=== PATIENT | female | born 1960 ===

== ENCOUNTER 2018-09-15 06:03 | Inpatient (IN) | payer BC ==
[~2018-09-15 06:03] MED LIST: Acetaminophen 325 MG Tab PO SCH; Lactated Ringers 1,000 ML IV SCH; Lidocaine 1%/Sod Bicarbonate in NS 8.4% 1 ML Syringe IDERM PRN; Pregabalin 25 MG Cap PO SCH; Sodium Chloride 0.9% 10 ML Syringe FLUSH PRN; oxyCODONE ER 10 MG TAB.ER PO SCH
[2018-09-15] MEDS ORDERED: Vancomycin 1 GM SDV ONE (06:15)
[2018-09-15] MEDS ORDERED: ceFAZolin 1 GM Vial ONE ×2 (06:15→06:59)
[2018-09-15] MEDS ORDERED: Iodine/Sodium Iodide 2% Tincture 30 ML Bottle ONE (06:16)
[2018-09-15] MEDS ORDERED: Bupivacaine 0.25% 30 ML SDV ONE (06:16)
[2018-09-15] MEDS ORDERED: Morphine 8 MG, EPINEPHrine 0.3 MG, Cefuroxime 750 MG, Ketorolac 30 MG, Sodium Chloride ... ONE ×10 (06:37→07:30)
[2018-09-15] MEDS ORDERED: Bisacodyl 5 MG Tab PO PRN (06:37)
[2018-09-15] MEDS ORDERED: Magnesium Hydroxide 400 MG/5 ML Susp 30 ML Cup PO PRN (06:37)
[2018-09-15] MEDS ORDERED: Cyclobenzaprine 10 MG Tab PO PRN (06:37)
[2018-09-15] MEDS ORDERED: Sennosides 8.6 MG Tab PO PRN (06:37)
[2018-09-15] MEDS ORDERED: Morphine 2 MG/ML Syringe IVPUSH PRN (06:37)
[2018-09-15] MEDS ORDERED: Naloxone 0.4 MG/ML SDV IVPUSH PRN (06:37)
[2018-09-15] MEDS ORDERED: Propofol 200 MG/20 ML SDV ONE (06:56)
[2018-09-15] MEDS ORDERED: Lidocaine 1% 4 ML ONE (06:57)
[2018-09-15] MEDS ORDERED: Ketamine 500 mg/10 ML MDV ONE (06:57)
[2018-09-15] MEDS ORDERED: Ondansetron 4 MG/2 ML SDV ONE (06:57)
[2018-09-15] MEDS ORDERED: Midazolam 1 MG/ML 2 ML SDV ONE ×2 (06:57→07:07)
[2018-09-15] MEDS ORDERED: ePHEDrine/Normal Saline 25 MG/5 ML Syringe ONE (06:58)
[2018-09-15] MEDS ORDERED: Scopolamine 1.5 MG Transdermal Patch TOP SCH (07:00)
[2018-09-15] MEDS ORDERED: Dexamethasone 4 MG/ML 5 ML MDV ONE (07:36)
[2018-09-15] MEDS ORDERED: Lidocaine 1% 2 ML ONE (07:57)
[2018-09-15] MEDS ORDERED: Ketorolac 30 MG/ML SDV ONE (08:29)
[2018-09-15] MEDS ORDERED: Lactated Ringers 1,000 ML ONE ×2 (08:30→08:44)
[2018-09-15] MEDS ORDERED: Phenylephrine/Normal Saline 100 MCG/ML 10 ML Syringe ONE (08:36)
[2018-09-15] MEDS ORDERED: fentaNYL 100 MCG/2 ML SDV IVPUSH PRN (08:40)
[2018-09-15] MEDS ORDERED: ePHEDrine 50 MG/ML SDV IVPUSH PRN (08:40)
[2018-09-15] MEDS ORDERED: diphenhydrAMINE 50 MG/ML SDV IVPUSH PRN (08:40)
[2018-09-15] MEDS ORDERED: Ondansetron 4 MG/2 ML SDV IVPUSH PRN (08:40)
--- NOTE | 2018-09-15 08:40 | PCM.PREANE ---
Preanesthetic Assessment - Anesthesia/Transfusion/Family Hx Anesthesia History: Prior Anesthesia Reaction Type of Anesthesia Reaction: Excessive Nausea/Vomiting Family History of Anesthesia Reaction: No Transfusion History: Prior Transfusion Without Reaction Intubation History: Unknown - Review of Systems General: No Symptoms Pulmonary: No Symptoms Cardiovascular: No Symptoms Gastrointestinal: No Symptoms Neurological: Headache (Migraines), Other (Lumbar Disk Surgery, Cervical Spine Disease, no radiculopathy noted. ) Other: Reports: Thyroid Problems, Depression, Anxiety (Severe) - Physical Assessment NPO Status Date: 09/14/18 NPO Status Time: 20:00 O2 Sat by Pulse Oximetry: 95 Respiratory Rate: 16 Vital Signs: Last Vital Signs Temp 36.4 C 09/15/18 06:15 Pulse 83 09/15/18 06:15 Resp 16 09/15/18 06:15 BP 118/76 09/15/18 06:15 Pulse Ox 95 09/15/18 06:15 Height: 1.57 m Weight: 60.781 kg ASA Class: 2 Mental Status: Alert & Oriented x3 Airway Class: Mallampati = 1 Dentition: Reports: Normal Dentition Thyro-Mental Finger Breadths: 3 Mouth Opening Finger Breadths: 3 ROM/Head Extension: Full Lungs: Clear to Auscultation, Normal Respiratory Effort Cardiovascular: Regular Rate, Regular Rhythm - Lab Values: Laboratory Last Values MRSA (PCR) Negative 09/04/18 08:33 - Allergies Allergies/Adverse Reactions: Allergies Allergy/AdvReac Type Severity Reaction Status Date / Time amoxicillin [From Augmentin] AdvReac Diarrhea Verified 09/12/18 14:11 clavulanic acid AdvReac Diarrhea Verified 09/12/18 14:11 [From Augmentin] - Anesthesia Plan Pre-Op Medication Ordered: Anxiolytic, Other (Scopolamine Patch) - Acknowledgements Anesthesia Type Planned: Spinal, Regional Block, MAC Pt an Appropriate Candidate for the Planned Anesthesia: Yes Alternatives and Risks of Anesthesia Discussed w Pt/Guardian: Yes Pt/Guardian Understands and Agrees with Anesthesia Plan: Yes Additional Comments: Adductor Canal Block In PACU. 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 OB/BYN History: menopausal, hot flashes Musculoskeletal History: Reports: Other (See Below) Other Musculoskeletal History: tendinitis, left knee pain Neurological History: Reports: Other (See Below) Other Neuro History: cervical disc disorder with radiculopathy, lumbar discectomy, spinectomy Psychiatric History: Reports: Anxiety, Depression Endocrine/Metabolic History: Reports: Hypothyroidism, Vitamin D Deficiency Hematologic History: Reports: Blood Transfusion(s) Immunologic History: Reports: None Oncologic (Cancer) History: Reports: None Dermatologic History: Reports: None - Past Surgical History Head Surgeries/Procedures: Reports: None HEENT Surgical History: Reports: Tonsillectomy Cardiovascular Surgical History: Reports: None Respiratory Surgical History: Reports: None GI Surgical History: Reports: Other (See Below) Other GI Surgeries/Procedures: splenectomy Female Surgical History: Reports: Section, D&C, Hysterectomy, Oophorectomy Male Surgical History: Reports: None Endocrine Surgical History: Reports: None Neurological Surgical History: Reports: Lumbar Spine Musculoskeletal Surgical History: Reports: Arthroscopic Knee Oncologic Surgical History: Reports: None Dermatological Surgical History: Reports: Other (See Below) - SUBSTANCE USE Smoking Status *Q: Never Smoker Second Hand Smoke Exposure: No Recreational Drug Use History: No - HOME MEDS Home Medications: Home Meds Ascorbic Acid [Vitamin C] 500 mg PO DAILY 03/26/18 [History] Cholecalciferol (Vitamin D3) [Vitamin D3] 2,000 unit PO DAILY 03/26/18 [History] ClonazePAM [KlonoPIN] 0.5 mg PO BEDTIME 03/26/18 [History] Estradiol 0.1 dose TOP TUTH 03/26/18 [History] Levothyroxine [Synthroid] 88 mcg PO DAILY 03/26/18 [History] Multivitamin [Poly-Vitamin] 1 tab PO DAILY 03/26/18 [History] fluvoxaMINE Maleate [Fluvoxamine Maleate ER] 100 mg PO BEDTIME 03/26/18 [History ] - CURRENT (IN HOUSE) MEDS Current Meds: Current Medications Acetaminophen (Tylenol) 975 mg PO ONETIME [facility] Stop: 09/15/18 13:00 Last Admin: 09/15/18 06:39 Dose: 975 mg Aspirin (Ecotrin) 325 mg PO BID [facility] Bisacodyl (Dulcolax) 5 mg PO DAILY PRN PRN Reason: Constipation Cyclobenzaprine HCl (Flexeril) 10 mg PO TID PRN PRN Reason: Spasms Docusate Sodium (Colace) 100 mg PO BID [facility] Famotidine (Pepcid) 20 mg PO Q12H [facility] Lactated Ringer's (Ringers, Lactated) 1,000 mls @ 125 mls/hr IV ASDIRECTED [facility] Stop: 09/15/18 23:00 Last Admin: 09/15/18 06:25 Dose: 125 mls/hr Cefazolin Sodium/Dextrose 2 gm (/ Premix) 50 mls @ 100 mls/hr IV Q8H [facility] Stop: 09/15/18 23:14 Ketorolac Tromethamine (Toradol) 15 mg IVPUSH Q6H PRN PRN Reason: Pain Lidocaine/Sodium Bicarbonate (Buffered Lidocaine 1% In Ns 8.4%) 0.25 ml IDERM ONETIME PRN PRN Reason: Prior to IV Start Stop: 09/15/18 18:00 Last Admin: 09/15/18 06:25 Dose: 0.25 ml Magnesium Hydroxide (Milk Of Magnesia) 30 ml PO BID PRN PRN Reason: Constipation Morphine Sulfate (Morphine) 2 mg IVPUSH Q2H PRN PRN Reason: Breakthrough Pain Naloxone HCl (Narcan) 0.1 mg IVPUSH Q5M PRN PRN Reason: Oversedation Ondansetron HCl (Zofran) 4 mg IVPUSH Q6H PRN PRN Reason: Nausea/Vomiting Oxycodone HCl (Oxycontin) 10 mg PO ONETIME [facility] Stop: 09/15/18 13:00 Last Admin: 09/15/18 06:40 Dose: 10 mg Oxycodone/Acetaminophen (Percocet 325-5 Mg) 1 - 2 tab PO Q4H PRN PRN Reason: Pain Pregabalin (Lyrica) 50 mg PO ONETIME [facility] Stop: 09/15/18 13:00 Last Admin: 09/15/18 06:39 Dose: 50 mg Scopolamine (Transderm-Scop) 1.5 mg TOP ONETIME [facility] Stop: 09/15/18 13:00 Last Admin: 09/15/18 06:19 Dose: 1.5 mg Senna (Senna) 8.6 mg PO BID PRN PRN Reason: Constipation Sodium Chloride (Saline Flush) 10 ml FLUSH ASDIRECTED PRN PRN Reason: Keep Vein Open Stop: 09/15/18 23:00 Discontinued Medications Bupivacaine HCl (Marcaine 0.25%) Confirm Administered Dose 30 ml .ROUTE .STK- MED ONE Stop: 09/15/18 06:17 Cefazolin Sodium (Ancef) Confirm Administered Dose 2 gm .ROUTE .STK-MED ONE Stop: 09/15/18 06:16 Cefazolin Sodium (Ancef) Confirm Administered Dose 2 gm .ROUTE .STK-MED ONE Stop: 09/15/18 07:00 Morphine Sulfate 8 mg/Epinephrine HCl 0.3 mg/Cefuroxime Sodium 750 mg/Ketorolac Tromethamine 30 mg/Sodium Chloride 27.9 ml 0 mg .XX ONETIME ONE Stop: 09/15/18 07:31 Dexamethasone (Dexamethasone) Confirm Administered Dose 20 mg .ROUTE .STK-MED ONE Stop: 09/15/18 07:37 Ephedrine Sulfate (Ephedrine In Ns) Confirm Administered Dose 25 mg .ROUTE .ST- MED ONE Stop: 09/15/18 06:59 Lidocaine HCl (Xylocaine-Mpf 1%) Confirm Administered Dose 4 mls @ as directed .ROUTE .STK-MED ONE Stop: 09/15/18 06:58 Lidocaine HCl (Xylocaine-Mpf 1%) Confirm Administered Dose 2 mls @ as directed .ROUTE .STK-MED ONE Stop: 09/15/18 07:58 Lactated Ringer's (Ringers, Lactated) Confirm Administered Dose 1,000 mls @ as directed .ROUTE .STK-MED ONE Stop: 09/15/18 08:31 Iodine (Iodine 2% Mild Tincture) Confirm Administered Dose 30 ml .ROUTE .STK- MED ONE Stop: 09/15/18 06:17 Ketamine HCl (Ketalar) Confirm Administered Dose 500 mg .ROUTE .STK-MED ONE Stop: 09/15/18 06:58 Ketorolac Tromethamine (Toradol) Confirm Administered Dose 30 mg .ROUTE .STK- MED ONE Stop: 09/15/18 08:30 Midazolam HCl (Versed 1 Mg/Ml) Confirm Administered Dose 2 mg .ROUTE .STK-MED ONE Stop: 09/15/18 06:58 Midazolam HCl (Versed 1 Mg/Ml) Confirm Administered Dose 2 mg .ROUTE .STK-MED ONE Stop: 09/15/18 07:08 Ondansetron HCl (Zofran) Confirm Administered Dose 4 mg .ROUTE .STK-MED ONE Stop: 09/15/18 06:58 Propofol (Diprivan 20 Ml) Confirm Administered Dose 600 mg .ROUTE .STK-MED ONE Stop: 09/15/18 06:57 Tranexamic Acid (Cyklokapron) Confirm Administered Dose 1,000 mg .ROUTE .STK- MED ONE Stop: 09/15/18 06:16 Vancomycin HCl (Vancomycin) Confirm Administered Dose 1 gm .ROUTE .STK-MED ONE Stop: 09/15/18 06:16
--- NOTE | 2018-09-15 09:01 | PCM.POSTAN ---
POST ANESTHESIA ASSESSMENT - MENTAL STATUS Mental Status: Alert, Oriented - VITAL SIGNS Pulse Rate: 103 SaO2: 95 Resp Rate: 15 Blood Pressure: 100/50 Temperature: 36.3 C - RESPIRATORY Respiratory Status: Respiratory Rate WNL, Airway Patent, O2 Saturation Stable, Supplemental Oxygen - CARDIOVASCULAR CV Status: Pulse Rate WNL, Blood Pressure Stable - GASTROINTESTINAL GI Status: No Symptoms - PAIN Pain Score: 0 - POST OP HYDRATION Hydration Status: Adequate & Stable
[2018-09-15] MEDS ORDERED: EPINEPHrine 1 MG/ML SDV ONE (09:13)
[2018-09-15] MEDS ORDERED: Ropivacaine 0.5% 5 MG/ML 30 ML SDV ONE (09:14)
--- NOTE | 2018-09-15 09:35 | PCM.SN ---
- Free Text/Narrative Note: Right selective femoral nerve block at the adductor canal for post-procedure pain control Time Out: 917 Start: 920 End: 926 Chart reviewed. Consent signed. Questions answered. Appropriate monitors applied. Time out performed. Right mid-shaft femur evaluated with ultrasound. Scanning medially femur, I was able to identify the femoral artery in the adductor canal. The saphenous nerve was lateral to the artery. The skin was prepped lateral to the ultrasound probe with chlorahexadine. The 21ga 4 insulated block needle was inserted under direct ultrasound guidance into the adductor canal. 20mL of 0.5% ropivacaine with 1:200,000 epinephrine was injected cirmcumferentially about the nerve with intermittent negative aspiration every 5mL. Patient tolerated the procedure well. See pictures on progress note and vital signs on nurses notes. Block completed postoperatively. Jackeline Braun DRY HOUSE TENDER
--- NOTE | 2018-09-15 10:24 | CR ---
Right knee: Two views of the right knee were obtained. Comparison: Previous right knee MRI dated 07/11/18. Knee prosthesis is seen. Components are aligned. Underlying bony structures are intact. Soft tissue air is noted from surgical procedure. Impression: 1. Satisfactory postoperative radiographic appearance of recently placed right knee prosthesis. Diagnostic code #2
[2018-09-15] MEDS: Famotidine 20 MG Tab PO SCH ×2 (11:46→17:45)
[2018-09-15] MEDS ORDERED: Sodium Chloride 0.9% 1,000 ML ONE (13:58)
[2018-09-15] MEDS: Ondansetron 4 MG/2 ML SDV IVPUSH PRN ×3 (14:00→23:23)
[2018-09-15] MEDS ORDERED: Sodium Chloride 0.9% 1,000 ML IV SCH (14:00)
[2018-09-15] MEDS: ceFAZolin 2 GM in Premix Bag 1 BAG IV SCH ×4 (15:11→22:14)
[2018-09-15] MEDS: Acetaminophen/oxyCODONE 325-5 MG Tab PO PRN (17:42)
[2018-09-15] MEDS: Docusate Sodium 100 MG Cap PO SCH (20:28)
[2018-09-15] MEDS: FLUVOXAMINE MALEATE 100 MG PO SCH (20:28)
[2018-09-15] MEDS: ClonazePAM 0.5 MG Tab PO SCH (20:28)
--- NOTE | 2018-09-15 20:29 | PCM.CONS ---
H&P History of Present Illness - General Date of Service: 09/15/18 Admit Problem/Dx: Admission Diagnosis/Problem Admission Diagnosis/Problem Osteoarthritis of knee - History of Present Illness Initial Comments - Free Text/Narative: Patient seen at the request of orthopedic surgery for medical management post right TKA. Patient had approximately 750 mL blood loss during surgery. When she arrived at the floor she did have some hypotension that required a 500 mL normal saline bolus. Patient has done well since that time. She denies any shortness of breath, chest pain, orthopnea, or pain. Patient has a past medical history significant for depression/anxiety, asplenia, and hypothyroidism. Patient will receive a second dose of antibiotics. Right Knee Pain Score (Numeric/FACES): 0 - Related Data Allergies/Adverse Reactions: Allergies Allergy/AdvReac Type Severity Reaction Status Date / Time amoxicillin [From Augmentin] AdvReac Diarrhea Verified 09/15/18 10:33 clavulanic acid AdvReac Diarrhea Verified 09/15/18 10:33 [From Augmentin] Home Medications: Home Meds Cholecalciferol (Vitamin D3) [Vitamin D3] 5,000 unit PO DAILY 03/26/18 [History] ClonazePAM [KlonoPIN] 0.5 mg PO BEDTIME 03/26/18 [History] Levothyroxine [Synthroid] 88 mcg PO DAILY 03/26/18 [History] Multivitamin [Poly-Vitamin] 1 tab PO DAILY 03/26/18 [History] fluvoxaMINE Maleate [Fluvoxamine Maleate ER] 100 mg PO BEDTIME 03/26/18 [History ] Acetaminophen/oxyCODONE [Percocet 325-5 MG] 1 - 2 tab PO Q4H PRN #60 tablet [Rx] Aspirin [Ecotrin] 325 mg PO BID #84 tab.ec 09/15/18 [Rx] Bisacodyl [Dulcolax] 5 mg PO DAILY PRN tablet 09/15/18 [Rx] Cyclobenzaprine [Flexeril] 10 mg PO BID PRN #30 tablet 09/15/18 [Rx] Docusate Sodium [Colace] 100 mg PO BID cap 09/15/18 [Rx] Famotidine [Pepcid] 20 mg PO Q12H tablet 09/15/18 [Rx] Magnesium Hydroxide [Milk of Magnesia] 30 ml PO BID PRN cup 09/15/18 [Rx] Sennosides [Senna] 8.6 mg PO BID PRN tablet 09/15/18 [Rx] Past Medical History HEENT History: Reports: Impaired Vision Other HEENT History: patient wears glasses. 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 OB/BYN History: menopausal, hot flashes Musculoskeletal History: Reports: Other (See Below) Other Musculoskeletal History: tendinitis, left knee pain Neurological History: Reports: Other (See Below) Other Neuro History: cervical disc disorder with radiculopathy, lumbar discectomy, spinectomy Psychiatric History: Reports: Anxiety, Depression Other Psychiatric History: Panic attacks Endocrine/Metabolic History: Reports: Hypothyroidism, Vitamin D Deficiency Hematologic History: Reports: Blood Transfusion(s) Immunologic History: Reports: None 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 Oncologic (Cancer) History: Reports: None Dermatologic History: Reports: None - Past Surgical History Head Surgeries/Procedures: Reports: None HEENT Surgical History: Reports: Tonsillectomy Cardiovascular Surgical History: Reports: None Respiratory Surgical History: Reports: None GI Surgical History: Reports: Other (See Below) Other GI Surgeries/Procedures: splenectomy Female Surgical History: Reports: Section, D&C, Hysterectomy, Oophorectomy Endocrine Surgical History: Reports: None Neurological Surgical History: Reports: Lumbar Spine Musculoskeletal Surgical History: Reports: Arthroscopic Knee Other Musculoskeletal Surgeries/Procedures:: Lumbar Spine Discetomy Oncologic Surgical History: Reports: None Other Oncologic Surgeries/Procedures: MOHS sx left cheek Dermatological Surgical History: Reports: Other (See Below) Social & Family History - Tobacco Use Smoking Status *Q: Never Smoker Second Hand Smoke Exposure: No - Caffeine Use Caffeine Use: Reports: Soda - Recreational Drug Use Recreational Drug Use: No H&P Review of Systems - Review of Systems: Review Of Systems: ROS reveals no pertinent complaints other than HPI. Exam - Exam Exam: See Below - Vital Signs Vital Signs: Last Vital Signs Temp 97.5 F 09/15/18 09:45 Pulse 55 L 09/15/18 17:01 Resp 16 09/15/18 10:00 BP 98/61 09/15/18 17:01 Pulse Ox 99 09/15/18 17:01 Weight: 135 lb - Exam Quality Assessment: No: Supplemental Oxygen General: Alert, Oriented HEENT: Conjunctiva Clear, Mucosa Moist & [place], Posterior Pharynx Clear Neck: Supple, Trachea Midline Lungs: Clear to Auscultation, Normal Respiratory Effort Cardiovascular: Regular Rate, Regular Rhythm GI/Abdominal Exam: Normal Bowel Sounds, Soft, Non-Tender, No Distention Back Exam: Normal Inspection, Full Range of Motion Extremities: Normal Inspection Skin: Warm, Dry, Intact Neuro Extensive - Mental Status: Alert, Oriented x3, Normal Mood/Affect, Normal Cognition Neuro Extensive - Motor, Sensory, Reflexes: CN II-XII Intact, Normal Gait - Patient Data Lab Results Last 24 hrs: Laboratory Results - last 24 hr 09/15/18 Range/Units 09:54 Hgb 12.4 (11.2-15.7) gm/L Hct 37.8 (34.1-44.9) % Result Diagrams: 09/15/18 09:54 Consult PN Assessment/Plan Procedures: Procedures ASSAY GLUCOSE BLOOD QUANT (05/13/15) ASSAY OF PREALBUMIN (09/04/18) ASSAY THYROID STIM HORMONE (09/04/18) COMP SCREEN MAMMOGRAM ADD-ON (05/10/16) COMPLETE CBC AUTOMATED (09/04/18) COMPLETE CBC W/AUTO DIFF WBC (06/10/17) COMPREHEN METABOLIC PANEL (09/04/18) DXA BONE DENSITY AXIAL (10/02/17) GLYCOSYLATED HEMOGLOBIN TEST (09/03/17) INFLUENZA ASSAY W/OPTIC (08/04/14) KNEE ARTHROSCOPY/SURGERY (03/27/18) LIPID PANEL (09/04/18) MANUAL THERAPY 1/> REGIONS (02/28/17) MASSAGE THERAPY (02/28/17) METABOLIC PANEL TOTAL CA (03/17/14) MICROBE SUSCEPTIBLE [place] (12/07/14) MR-STAPH DNA AMP PROBE (03/27/18) MRI JNT OF LWR EXTRE W/O DYE (07/11/18) MRI LUMBAR SPINE W/O DYE (04/03/17) OCCULT BLOOD FECES (05/15/15) PROTHROMBIN TIME (09/04/18) PT EVAL LOW COMPLEX 20 MIN (02/28/17) PT EVALUATION (10/15/13) ROUTINE VENIPUNCTURE (09/04/18) SCR MAMMO BI INCL CAD (10/02/17) THERAPEUTIC EXERCISES (02/28/17) THROMBOPLASTIN TIME PARTIAL (09/04/18) ULTRASOUND THERAPY (10/15/13) URINALYSIS AUTO W/O SCOPE (09/03/17) URINALYSIS AUTO W/SCOPE (06/10/17) URINE BACTERIA CULTURE (12/07/14) URINE CULTURE/COLONY COUNT (12/07/14) VITAMIN D 25 HYDROXY (09/04/18) X-RAY EXAM CHEST 2 VIEWS (09/03/18) X-RAY EXAM KNEE 4 OR MORE (03/08/14) X-RAY EXAM L-S SPINE 2/3 VWS (03/29/17) X-RAY EXAM OF WRIST (03/08/14) Problem List Initiated/Reviewed/Updated: Yes My Orders Last 24 Hours: My Active Orders 09/15/18 14:00 Sodium Chloride 0.9% [Normal Saline] 1,000 ml IV ASDIRECTED Plan: S/P R TKA * Approximately 750 mL blood loss * One episode of hypotension corrected with 500 mL of normal saline. * Follow hemoglobin in the morning. * Pain management and VTE prophylaxis per surgery Asplenia * Patient will receive second dose of antibiotics. * Monitor WBC and temperature overnight. Chronic medical problems to include hypothyroidism, menopausal, anxiety, depression, vitamin D. Plan discharge in the morning per orthopedic surgery. Thank you for allowing us to dissipate in the care of this patient. Requesting Provider: Dr. Alston Date Consult Requested: 09/15/18 Reason for Consult: Medical management Patient History Reviewed: Yes Admission H&P Reviewed: Yes Notified Requestor: Yes
[2018-09-15] MEDS: Ketorolac 15 MG/ML SDV IVPUSH PRN (22:14)
[2018-09-16] MEDS: Ondansetron 4 MG/2 ML SDV IVPUSH PRN (05:45)
[2018-09-16] MEDS ORDERED: Sodium Chloride 0.9% 500 ML IV ONE (06:00)
[2018-09-16] MEDS ORDERED: LORazepam 0.5 MG Tab PO PRN (06:32)
--- NOTE | 2018-09-16 06:32 | PCM.PN ---
<Mitch Antunez - Last Filed: 09/16/18 19:34> - Patient Data Vitals - Most Recent: Last Vital Signs Temp 99.9 F 09/16/18 15:52 Pulse 77 09/16/18 15:52 Resp 14 09/16/18 15:52 BP 93/45 L 09/16/18 15:52 Pulse Ox 91 L 09/16/18 15:52 I&O - Last 24 Hours: Intake & Output 09/16/18 09/16/18 09/16/18 06:59 14:59 22:59 Intake Total 800 0 1540 Output Total 3100 1200 Balance -2300 0 340 Lab Results Last 24 Hours: Laboratory Results - last 24 hr 09/16/18 09/16/18 09/16/18 Range/Units 06:05 06:05 12:28 WBC 22.59 H (3.98-10.04) K/mm3 RBC 3.69 L (3.98-5.22) M/mm3 Hgb 10.9 L (11.2-15.7) gm/L Hct 33.0 L (34.1-44.9) % MCV 89.4 (79.4-94.8) fl MCH 29.5 (25.6-32.2) pg MCHC 33.0 (32.2-35.5) g/dl RDW Std Deviation 44.4 (36.4-46.3) fL Plt Count 306 (182-369) K/mm3 MPV 10.3 (9.4-12.3) fl Sodium 139 (136-145) mEq/L Potassium 4.3 (3.5-5.1) mEq/L Chloride 105 (98-107) mEq/L Carbon Dioxide 28 (21-32) mEq/L Anion Gap 10.3 (5-15) BUN 10 (7-18) mg/dL Creatinine 0.8 (0.55-1.02) mg/dL Est Cr Clr Drug Dosing 62.10 mL/min Estimated GFR (MDRD) > 60 (>60) mL/min BUN/Creatinine Ratio 12.5 L (14-18) Glucose 120 H (74-106) mg/dL Calcium 9.4 (8.5-10.1) mg/dL Total Bilirubin 0.5 (0.2-1.0) mg/dL AST 21 (15-37) U/L ALT 37 (14-59) U/L Alkaline Phosphatase 49 (46-116) U/L Total Protein 6.0 L (6.4-8.2) g/dl Albumin 3.0 L (3.4-5.0) g/dl Globulin 3.0 gm/dL Albumin/Globulin Ratio 1.0 (1-2) Urine Color Yellow (Yellow) Urine Appearance Clear (Clear) Urine pH 6.0 (5.0-8.0) Ur Specific Wood 1.020 (1.005-1.030) Urine Protein Trace H (Negative) Urine Glucose (UA) Negative (Negative) Urine Ketones Negative (Negative) Urine Occult Blood Negative (Negative) Urine Nitrite Negative (Negative) Urine Bilirubin Negative (Negative) Urine Urobilinogen 0.2 (0.2-1.0) Ur Leukocyte Esterase Negative (Negative) Urine RBC 0-5 (0-5) /hpf Urine WBC 0-5 (0-5) /hpf Ur Epithelial Cells 0-5 (0-5) /hpf Ur Renal Epithelial Cell 0-5 (0-5) /hpf Urine Bacteria Rare (FEW) /hpf Urine Mucus Few (FEW) /hpf Med Orders - Current: Current Medications Aspirin (Ecotrin) 325 mg PO BID [facility] Last Admin: 09/16/18 08:55 Dose: 325 mg Bisacodyl (Dulcolax) 5 mg PO DAILY PRN PRN Reason: Constipation Cholecalciferol (Vitamin D3) 5,000 unit PO DAILY [facility] Last Admin: 09/16/18 08:55 Dose: 5,000 unit Clonazepam (Klonopin) 0.5 mg PO BEDTIME [facility] Last Admin: 09/15/18 20:28 Dose: 0.5 mg Cyclobenzaprine HCl (Flexeril) 10 mg PO TID PRN PRN Reason: Spasms Last Admin: 09/16/18 18:10 Dose: 10 mg Docusate Sodium (Colace) 100 mg PO BID [facility] Last Admin: 09/16/18 08:55 Dose: 100 mg Famotidine (Pepcid) 20 mg PO Q12H [facility] Last Admin: 09/16/18 18:10 Dose: 20 mg Sodium Chloride (Normal Saline) 1,000 mls @ 100 mls/hr IV ASDIRECTED [facility] Last Admin: 09/16/18 13:48 Dose: 100 mls/hr Levothyroxine Sodium (Synthroid) 88 mcg PO DAILY@0700 [facility] Last Admin: 09/16/18 06:41 Dose: 88 mcg Lorazepam (Ativan) 0.5 mg PO Q4H PRN PRN Reason: Anxiety Last Admin: 09/16/18 06:41 Dose: 0.5 mg Magnesium Hydroxide (Milk Of Magnesia) 30 ml PO BID PRN PRN Reason: Constipation Morphine Sulfate (Morphine) 2 mg IVPUSH Q2H PRN PRN Reason: Breakthrough Pain Last Admin: 09/16/18 17:09 Dose: 2 mg Multivitamins (Thera) 1 each PO DAILY [facility] Last Admin: 09/16/18 08:55 Dose: 1 each Naloxone HCl (Narcan) 0.1 mg IVPUSH Q5M PRN PRN Reason: Oversedation Ondansetron HCl (Zofran) 4 mg IVPUSH Q4H PRN PRN Reason: Nausea Last Admin: 09/16/18 05:45 Dose: 4 mg Oxycodone HCl (Oxycodone) 5 mg PO Q4H PRN PRN Reason: Pain Last Admin: 09/16/18 15:57 Dose: 5 mg Oxycodone/Acetaminophen (Percocet 325-5 Mg) 1 - 2 tab PO Q4H PRN PRN Reason: Pain Last Admin: 09/15/18 17:42 Dose: 2 tab Fluvoxamine Maleate (Er 100 Mg Ptom) 0 each PO BEDTIME [facility] Last Admin: 09/15/18 20:28 Dose: 1 each Senna (Senna) 8.6 mg PO BID PRN PRN Reason: Constipation Discontinued Medications Acetaminophen (Tylenol) 975 mg PO ONETIME [facility] Stop: 09/15/18 13:00 Last Admin: 09/15/18 06:39 Dose: 975 mg Bupivacaine HCl (Marcaine 0.25%) Confirm Administered Dose 30 ml .ROUTE .STK- MED ONE Stop: 09/15/18 06:17 Last Admin: 09/15/18 08:14 Dose: 30 ml Cefazolin Sodium (Ancef) Confirm Administered Dose 2 gm .ROUTE .STK-MED ONE Stop: 09/15/18 06:16 Last Admin: 09/15/18 08:08 Dose: 2 gm Cefazolin Sodium (Ancef) Confirm Administered Dose 2 gm .ROUTE .STK-MED ONE Stop: 09/15/18 07:00 Morphine Sulfate 8 mg/Epinephrine HCl 0.3 mg/Cefuroxime Sodium 750 mg/Ketorolac Tromethamine 30 mg/Sodium Chloride 27.9 ml 0 mg .XX ONETIME ONE Stop: 09/15/18 07:31 Last Admin: 09/15/18 11:46 Dose: Not Given Dexamethasone (Dexamethasone) Confirm Administered Dose 20 mg .ROUTE .STK-MED ONE Stop: 09/15/18 07:37 Diphenhydramine HCl (Benadryl) 25 mg IVPUSH Q6H PRN PRN Reason: Pruritis Stop: 09/15/18 16:00 Ephedrine Sulfate (Ephedrine In Ns) Confirm Administered Dose 25 mg .ROUTE .STK- MED ONE Stop: 09/15/18 06:59 Ephedrine Sulfate (Ephedrine Sulfate) 5 mg IVPUSH ASDIRECTED PRN PRN Reason: Hypotension Stop: 09/15/18 12:00 Epinephrine HCl (Adrenalin) Confirm Administered Dose 1 mg .ROUTE .STK-MED ONE Stop: 09/15/18 09:14 Fentanyl (Sublimaze) 50 mcg IVPUSH Q5M PRN PRN Reason: Pain Stop: 09/15/18 12:00 Lactated Ringer's (Ringers, Lactated) 1,000 mls @ 125 mls/hr IV ASDIRECTED [facility] Stop: 09/15/18 23:00 Last Admin: 09/15/18 06:25 Dose: 125 mls/hr Cefazolin Sodium/Dextrose 2 gm (/ Premix) 50 mls @ 100 mls/hr IV Q8H [facility] Stop: 09/15/18 23:14 Last Admin: 09/15/18 19:51 Dose: Not Given Lidocaine HCl (Xylocaine-Mpf 1%) Confirm Administered Dose 4 mls @ as directed .ROUTE .STK-MED ONE Stop: 09/15/18 06:58 Lidocaine HCl (Xylocaine-Mpf 1%) Confirm Administered Dose 2 mls @ as directed .ROUTE .STK-MED ONE Stop: 09/15/18 07:58 Lactated Ringer's (Ringers, Lactated) Confirm Administered Dose 1,000 mls @ as directed .ROUTE .STK-MED ONE Stop: 09/15/18 08:31 Lactated Ringer's (Ringers, Lactated) Confirm Administered Dose 1,000 mls @ as directed .ROUTE .STK-MED ONE Stop: 09/15/18 08:45 Sodium Chloride (Normal Saline) 1,000 mls @ 999 mls/hr IV ASDIRECTED [facility] Last Admin: 09/15/18 14:03 Dose: 999 mls/hr Sodium Chloride (Normal Saline) Confirm Administered Dose 1,000 mls @ as directed .ROUTE .STK-MED ONE Stop: 09/15/18 13:59 Last Admin: 09/15/18 14:34 Dose: Not Given Cefazolin Sodium/Dextrose 2 gm (/ Premix) 50 mls @ 100 mls/hr IV Q8H [facility] Stop: 09/16/18 07:29 Last Admin: 09/16/18 07:25 Dose: 100 mls/hr Sodium Chloride (Normal Saline) 500 mls @ 500 mls/hr IV .BOLUS ONE Stop: 09/16/18 06:59 Last Admin: 09/16/18 06:09 Dose: 500 mls/hr Iodine (Iodine 2% Mild Tincture) Confirm Administered Dose 30 ml .ROUTE .STK- MED ONE Stop: 09/15/18 06:17 Last Admin: 09/15/18 08:05 Dose: 18 ml Ketamine HCl (Ketalar) Confirm Administered Dose 500 mg .ROUTE .STK-MED ONE Stop: 09/15/18 06:58 Ketorolac Tromethamine (Toradol) 15 mg IVPUSH Q6H PRN PRN Reason: Pain Last Admin: 09/16/18 16:52 Dose: 15 mg Ketorolac Tromethamine (Toradol) Confirm Administered Dose 30 mg .ROUTE .STK- MED ONE Stop: 09/15/18 08:30 Lidocaine/Sodium Bicarbonate (Buffered Lidocaine 1% In Ns 8.4%) 0.25 ml IDERM ONETIME PRN PRN Reason: Prior to IV Start Stop: 09/15/18 18:00 Last Admin: 09/15/18 06:25 Dose: 0.25 ml Midazolam HCl (Versed 1 Mg/Ml) Confirm Administered Dose 2 mg .ROUTE .STK-MED ONE Stop: 09/15/18 06:58 Midazolam HCl (Versed 1 Mg/Ml) Confirm Administered Dose 2 mg .ROUTE .STK-MED ONE Stop: 09/15/18 07:08 Ondansetron HCl (Zofran) 4 mg IVPUSH Q6H PRN PRN Reason: Nausea/Vomiting Last Admin: 09/15/18 19:20 Dose: 4 mg Ondansetron HCl (Zofran) Confirm Administered Dose 4 mg .ROUTE .STK-MED ONE Stop: 09/15/18 06:58 Ondansetron HCl (Zofran) 4 mg IVPUSH ONETIME PRN PRN Reason: Nausea/Vomiting Stop: 09/15/18 12:00 Oxycodone HCl (Oxycontin) 10 mg PO ONETIME [facility] Stop: 09/15/18 13:00 Last Admin: 09/15/18 06:40 Dose: 10 mg Phenylephrine HCl (Phenylephrine In Ns 100 Mcg/Ml) Confirm Administered Dose 1 mg .ROUTE .STK-MED ONE Stop: 09/15/18 08:37 Pregabalin (Lyrica) 50 mg PO ONETIME [facility] Stop: 09/15/18 13:00 Last Admin: 09/15/18 06:39 Dose: 50 mg Prochlorperazine Edisylate (Compazine) 5 mg IVPUSH ONETIME ONE Stop: 09/16/18 07:50 Last Admin: 09/16/18 07:58 Dose: 5 mg Propofol (Diprivan 20 Ml) Confirm Administered Dose 600 mg .ROUTE .STK-MED ONE Stop: 09/15/18 06:57 Ropivacaine (Naropin 0.5%) Confirm Administered Dose 30 ml .ROUTE .STK-MED ONE Stop: 09/15/18 09:15 Scopolamine (Transderm-Scop) 1.5 mg TOP ONETIME [facility] Stop: 09/15/18 13:00 Last Admin: 09/15/18 06:19 Dose: 1.5 mg Sodium Chloride (Saline Flush) 10 ml FLUSH ASDIRECTED PRN PRN Reason: Keep Vein Open Stop: 09/15/18 23:00 Tranexamic Acid (Cyklokapron) Confirm Administered Dose 1,000 mg .ROUTE .STK- MED ONE Stop: 09/15/18 06:16 Last Admin: 09/15/18 08:24 Dose: 1,000 mg Vancomycin HCl (Vancomycin) Confirm Administered Dose 1 gm .ROUTE .STK-MED ONE Stop: 09/15/18 06:16 Last Admin: 09/15/18 08:16 Dose: 1 gm - My Orders Last 24 Hours: My Active Orders 09/15/18 23:13 Ondansetron [Zofran] 4 mg IVPUSH Q4H PRN 09/16/18 06:32 LORazepam [Ativan] 0.5 mg PO Q4H PRN - Plan Plan:: Patient was seen in conjunction with Chas Montoya PA-C. UA UA done today was negative as well as a chest x-ray. Patient is on IV fluids and seems to be doing better. She did have significant pain this evening which was handled by her primary care team. <Chas Montoya - Last Filed: 09/17/18 07:11> - General Info Date of Service: 09/16/18 Admission Dx/Problem (Free Text): Admission Diagnosis/Problem Admission Diagnosis/Problem Osteoarthritis of knee Subjective Update: Overall Sherley had a rough day. She was nauseated even after multiple medications and vomited several times. She was very anxious and this improved after PO ativan. Her WBC was elevated, likely from a stress reaction, however she did have some rigors and chills. Infectious workup was otherwise negative. She was given a 500mL IV fluid bolus and then fluids thereafter. Therapies have worked with her a little bit but due to pain and nausea they have not been able to accomplish much. Her pain has not been controlled and primary team was alerted to this. She will be held until tomorrow to accomplish better pain control and nausea control. Functional Status: Reports: Pain Controlled, Tolerating Diet, Ambulating, Urinating, Incentive Spirometry. Denies: New Symptoms - Review of Systems General: Reports: Weakness, Chills. Denies: Fever HEENT: Reports: No Symptoms. Denies: Headaches, Sore Throat Pulmonary: Reports: No Symptoms. Denies: Shortness of Breath, Pleuritic Chest Pain, Cough, Sputum, Wheezing Cardiovascular: Reports: No Symptoms. Denies: Chest Pain, Palpitations, Dyspnea on Exertion Gastrointestinal: Reports: Nausea, Vomiting. Denies: Abdominal Pain, Constipation, Diarrhea Genitourinary: Reports: No Symptoms. Denies: Pain Musculoskeletal: Reports: Leg Pain Skin: Reports: No Symptoms Neurological: Reports: No Symptoms. Denies: Confusion Psychiatric: Reports: Anxiety - Patient Data Vitals - Most Recent: Last Vital Signs Temp 97.3 F 09/15/18 20:00 Pulse 63 09/15/18 22:57 Resp 14 09/15/18 22:57 BP 100/60 09/15/18 22:57 Pulse Ox 96 09/15/18 22:57 Weight - Most Recent: 142 lb 3.2 oz I&O - Last 24 Hours: Intake & Output 09/15/18 09/15/18 09/16/18 14:59 22:59 06:59 Intake Total 600 3300 800 Output Total 800 3100 Balance 600 2500 -2300 Lab Results Last 24 Hours: Laboratory Results - last 24 hr 09/15/18 09/16/18 Range/Units 09:54 06:05 WBC 22.59 H (3.98-10.04) K/mm3 RBC 3.69 L (3.98-5.22) M/mm3 Hgb 12.4 10.9 L (11.2-15.7) gm/L Hct 37.8 33.0 L (34.1-44.9) % MCV 89.4 (79.4-94.8) fl MCH 29.5 (25.6-32.2) pg MCHC 33.0 (32.2-35.5) g/dl RDW Std Deviation 44.4 (36.4-46.3) fL Plt Count 306 (182-369) K/mm3 MPV 10.3 (9.4-12.3) fl Med Orders - Current: Current Medications Aspirin (Ecotrin) 325 mg PO BID [facility] Bisacodyl (Dulcolax) 5 mg PO DAILY PRN PRN Reason: Constipation Cholecalciferol (Vitamin D3) 5,000 unit PO DAILY [facility] Clonazepam (Klonopin) 0.5 mg PO BEDTIME [facility] Last Admin: 09/15/18 20:28 Dose: 0.5 mg Cyclobenzaprine HCl (Flexeril) 10 mg PO TID PRN PRN Reason: Spasms Docusate Sodium (Colace) 100 mg PO BID [facility] Last Admin: 09/15/18 20:28 Dose: 100 mg Famotidine (Pepcid) 20 mg PO Q12H [facility] Last Admin: 09/15/18 17:45 Dose: 20 mg Sodium Chloride (Normal Saline) 1,000 mls @ 999 mls/hr IV ASDIRECTED [facility] Last Admin: 09/15/18 14:03 Dose: 999 mls/hr Cefazolin Sodium/Dextrose 2 gm (/ Premix) 50 mls @ 100 mls/hr IV Q8H [facility] Stop: 09/16/18 07:29 Last Admin: 09/15/18 22:14 Dose: 100 mls/hr Sodium Chloride (Normal Saline) 500 mls @ 500 mls/hr IV .BOLUS ONE Stop: 09/16/18 06:59 Last Admin: 09/16/18 06:09 Dose: 500 mls/hr Ketorolac Tromethamine (Toradol) 15 mg IVPUSH Q6H PRN PRN Reason: Pain Last Admin: 09/15/18 22:14 Dose: 15 mg Levothyroxine Sodium (Synthroid) 88 mcg PO DAILY@0700 [facility] Magnesium Hydroxide (Milk Of Magnesia) 30 ml PO BID PRN PRN Reason: Constipation Morphine Sulfate (Morphine) 2 mg IVPUSH Q2H PRN PRN Reason: Breakthrough Pain Multivitamins (Thera) 1 each PO DAILY [facility] Naloxone HCl (Narcan) 0.1 mg IVPUSH Q5M PRN PRN Reason: Oversedation Ondansetron HCl (Zofran) 4 mg IVPUSH Q4H PRN PRN Reason: Nausea Last Admin: 09/16/18 05:45 Dose: 4 mg Oxycodone/Acetaminophen (Percocet 325-5 Mg) 1 - 2 tab PO Q4H PRN PRN Reason: Pain Last Admin: 09/15/18 17:42 Dose: 2 tab Fluvoxamine Maleate (Er 100 Mg Ptom) 0 each PO BEDTIME [facility] Last Admin: 09/15/18 20:28 Dose: 1 each Senna (Senna) 8.6 mg PO BID PRN PRN Reason: Constipation Discontinued Medications Acetaminophen (Tylenol) 975 mg PO ONETIME [facility] Stop: 09/15/18 13:00 Last Admin: 09/15/18 06:39 Dose: 975 mg Bupivacaine HCl (Marcaine 0.25%) Confirm Administered Dose 30 ml .ROUTE .STK- MED ONE Stop: 09/15/18 06:17 Last Admin: 09/15/18 08:14 Dose: 30 ml Cefazolin Sodium (Ancef) Confirm Administered Dose 2 gm .ROUTE .STK-MED ONE Stop: 09/15/18 06:16 Last Admin: 09/15/18 08:08 Dose: 2 gm Cefazolin Sodium (Ancef) Confirm Administered Dose 2 gm .ROUTE .STK-MED ONE Stop: 09/15/18 07:00 Morphine Sulfate 8 mg/Epinephrine HCl 0.3 mg/Cefuroxime Sodium 750 mg/Ketorolac Tromethamine 30 mg/Sodium Chloride 27.9 ml 0 mg .XX ONETIME ONE Stop: 09/15/18 07:31 Last Admin: 09/15/18 11:46 Dose: Not Given Dexamethasone (Dexamethasone) Confirm Administered Dose 20 mg .ROUTE .STK-MED ONE Stop: 09/15/18 07:37 Diphenhydramine HCl (Benadryl) 25 mg IVPUSH Q6H PRN PRN Reason: Pruritis Stop: 09/15/18 16:00 Ephedrine Sulfate (Ephedrine In Ns) Confirm Administered Dose 25 mg .ROUTE .STK- MED ONE Stop: 09/15/18 06:59 Ephedrine Sulfate (Ephedrine Sulfate) 5 mg IVPUSH ASDIRECTED PRN PRN Reason: Hypotension Stop: 09/15/18 12:00 Epinephrine HCl (Adrenalin) Confirm Administered Dose 1 mg .ROUTE .STK-MED ONE Stop: 09/15/18 09:14 Fentanyl (Sublimaze) 50 mcg IVPUSH Q5M PRN PRN Reason: Pain Stop: 09/15/18 12:00 Lactated Ringer's (Ringers, Lactated) 1,000 mls @ 125 mls/hr IV ASDIRECTED [facility] Stop: 09/15/18 23:00 Last Admin: 09/15/18 06:25 Dose: 125 mls/hr Cefazolin Sodium/Dextrose 2 gm (/ Premix) 50 mls @ 100 mls/hr IV Q8H [facility] Stop: 09/15/18 23:14 Last Admin: 09/15/18 19:51 Dose: Not Given Lidocaine HCl (Xylocaine-Mpf 1%) Confirm Administered Dose 4 mls @ as directed .ROUTE .STK-MED ONE Stop: 09/15/18 06:58 Lidocaine HCl (Xylocaine-Mpf 1%) Confirm Administered Dose 2 mls @ as directed .ROUTE .STK-MED ONE Stop: 09/15/18 07:58 Lactated Ringer's (Ringers, Lactated) Confirm Administered Dose 1,000 mls @ as directed .ROUTE .STK-MED ONE Stop: 09/15/18 08:31 Lactated Ringer's (Ringers, Lactated) Confirm Administered Dose 1,000 mls @ as directed .ROUTE .STK-MED ONE Stop: 09/15/18 08:45 Sodium Chloride (Normal Saline) Confirm Administered Dose 1,000 mls @ as directed .ROUTE .STK-MED ONE Stop: 09/15/18 13:59 Last Admin: 09/15/18 14:34 Dose: Not Given Iodine (Iodine 2% Mild Tincture) Confirm Administered Dose 30 ml .ROUTE .STK- MED ONE Stop: 09/15/18 06:17 Last Admin: 09/15/18 08:05 Dose: 18 ml Ketamine HCl (Ketalar) Confirm Administered Dose 500 mg .ROUTE .ST-MED ONE Stop: 09/15/18 06:58 Ketorolac Tromethamine (Toradol) Confirm Administered Dose 30 mg .ROUTE .STK- MED ONE Stop: 09/15/18 08:30 Lidocaine/Sodium Bicarbonate (Buffered Lidocaine 1% In Ns 8.4%) 0.25 ml IDERM ONETIME PRN PRN Reason: Prior to IV Start Stop: 09/15/18 18:00 Last Admin: 09/15/18 06:25 Dose: 0.25 ml Midazolam HCl (Versed 1 Mg/Ml) Confirm Administered Dose 2 mg .ROUTE .STK-MED ONE Stop: 09/15/18 06:58 Midazolam HCl (Versed 1 Mg/Ml) Confirm Administered Dose 2 mg .ROUTE .STK-MED ONE Stop: 09/15/18 07:08 Ondansetron HCl (Zofran) 4 mg IVPUSH Q6H PRN PRN Reason: Nausea/Vomiting Last Admin: 09/15/18 19:20 Dose: 4 mg Ondansetron HCl (Zofran) Confirm Administered Dose 4 mg .ROUTE .STK-MED ONE Stop: 09/15/18 06:58 Ondansetron HCl (Zofran) 4 mg IVPUSH ONETIME PRN PRN Reason: Nausea/Vomiting Stop: 09/15/18 12:00 Oxycodone HCl (Oxycontin) 10 mg PO ONETIME [facility] Stop: 09/15/18 13:00 Last Admin: 09/15/18 06:40 Dose: 10 mg Phenylephrine HCl (Phenylephrine In Ns 100 Mcg/Ml) Confirm Administered Dose 1 mg .ROUTE .STK-MED ONE Stop: 09/15/18 08:37 Pregabalin (Lyrica) 50 mg PO ONETIME [facility] Stop: 09/15/18 13:00 Last Admin: 09/15/18 06:39 Dose: 50 mg Propofol (Diprivan 20 Ml) Confirm Administered Dose 600 mg .ROUTE .STK-MED ONE Stop: 09/15/18 06:57 Ropivacaine (Naropin 0.5%) Confirm Administered Dose 30 ml .ROUTE .STK-MED ONE Stop: 09/15/18 09:15 Scopolamine (Transderm-Scop) 1.5 mg TOP ONETIME [facility] Stop: 09/15/18 13:00 Last Admin: 09/15/18 06:19 Dose: 1.5 mg Sodium Chloride (Saline Flush) 10 ml FLUSH ASDIRECTED PRN PRN Reason: Keep Vein Open Stop: 09/15/18 23:00 Tranexamic Acid (Cyklokapron) Confirm Administered Dose 1,000 mg .ROUTE .STK- MED ONE Stop: 09/15/18 06:16 Last Admin: 09/15/18 08:24 Dose: 1,000 mg Vancomycin HCl (Vancomycin) Confirm Administered Dose 1 gm .ROUTE .STK-MED ONE Stop: 09/15/18 06:16 Last Admin: 09/15/18 08:16 Dose: 1 gm - Exam Quality Assessment: DVT Prophylaxis. No: Urine Catheter General: Alert, Oriented, Cooperative, No Acute Distress HEENT: Pupils Equal, Pupils Reactive, EOMI, Mucous Membr. Moist/[place] Neck: Supple, Trachea Midline, No JVD Lungs: Clear to Auscultation, Normal Respiratory Effort Cardiovascular: Regular Rate, Regular Rhythm GI/Abdominal Exam: Normal Bowel Sounds, Soft, Non-Tender, No Organomegaly, No Distention (Female) Exam: Deferred Back Exam: Normal Inspection, Full Range of Motion Extremities: No Pedal Edema, Normal Capillary Refill, Leg Pain, Limited Range of Motion, Other (Bandage in place on right leg. Cooling pack in place ) Peripheral Pulses: 2+: Radial (L), Radial (R), Dorsalis Pedis (L), Dorsalis Pedis (R) Skin: Warm, Dry, Intact Wound/Incisions: Dressing Dry and Intact, No Drainage Neurological: No New Focal Deficit Psy/Mental Status: Alert, Normal Affect, Normal Mood - Problem List & Annotations (1) S/P total knee arthroplasty SNOMED Code(s): 8805002625374, 517014420, 5747223796085 Code(s): Z96.659 - PRESENCE OF UNSPECIFIED ARTIFICIAL KNEE JOINT Status: Acute Priority: High Current Visit: Yes Qualifiers: Laterality: right Qualified Code(s): Z96.651 - Presence of right artificial knee joint (2) Hypothyroidism SNOMED Code(s): 94107081 Code(s): E03.9 - HYPOTHYROIDISM, UNSPECIFIED Status: Chronic Priority: Low Current Visit: No (3) Impaired fasting glucose SNOMED Code(s): 994577245 Code(s): R73.01 - IMPAIRED FASTING GLUCOSE Status: Chronic Priority: Low Current Visit: No (4) Anxiety SNOMED Code(s): 95498130 Code(s): F41.9 - ANXIETY DISORDER, UNSPECIFIED Status: Acute Priority: High Current Visit: Yes (5) Vitamin D deficiency SNOMED Code(s): 13681892 Code(s): E55.9 - VITAMIN D DEFICIENCY, UNSPECIFIED Status: Chronic Priority: Medium Current Visit: No (6) Post-operative nausea and vomiting SNOMED Code(s): 8434364 Code(s): R11.2 - NAUSEA WITH VOMITING, UNSPECIFIED; Z98.890 - OTHER SPECIFIED POSTPROCEDURAL STATES Status: Acute Priority: High Current Visit : Yes (7) Leukocytosis SNOMED Code(s): 360880629, 486847384 Code(s): D72.829 - ELEVATED WHITE BLOOD CELL COUNT, UNSPECIFIED Status: Acute Priority: Medium Current Visit: Yes Qualifiers: Leukocytosis type: unspecified Qualified Code(s): D72.829 - Elevated white blood cell count, unspecified - Problem List Review Problem List Initiated/Reviewed/Updated: Yes - Plan Plan:: I/P: Acute: S/P right total knee arthroplasty - post-operative day 1 -DVT prophylaxis and pain management per primary care team -PT/OT -IS/RT -Monitor oxygen saturation -Titrate oxygen as needed -Home medications reviewed -Vital signs stable -Monitor labs -Pre-operative Hgb was 14.3; 12.4 after surgery; Now 10.9 -Pre-operative GFR was >60; Now >60 Osteoarthritis of Right knee -Pain management per primary care team Post operative HTN -One reported episode yesterday evening -750mL blood loss during surgery -Corrected with 500mL fluid bolus -IV fluids as ordered Post-operative nausea and vomiting -Notes increased anxiety and pain -Pain medications per primary team -Zofran given -Scopolamine patch in place -Compazine ordered Leukocytosis -Likely stress reaction from pain/emesis -WBC 22.59 -Denies urinary symptoms or cough/SOB -CXR Negative -UA Negative Chronic: Hypothyroidism IFG Menopausal Anxiety Vitamin D Depression Splenectomy Plan: CM for discharge planning GI prophylaxis Home medications as indicated Other orders as listed above Routine AM labs She is a full code. [His/Her] PCP is Brooke Javed NP Thank you for allowing us to participate in the care of this patient!!
[2018-09-16] MEDS: Famotidine 20 MG Tab PO SCH ×2 (06:41→18:10)
[2018-09-16] MEDS: Levothyroxine 88 MCG Tab PO SCH (06:41)
[2018-09-16] MEDS: Ketorolac 15 MG/ML SDV IVPUSH PRN ×2 (07:11→16:52)
[2018-09-16] MEDS: ceFAZolin 2 GM in Premix Bag 1 BAG IV SCH (07:25)
[2018-09-16] MEDS ORDERED: Prochlorperazine 10 MG/2 ML SDV IVPUSH ONE (07:49)
--- NOTE | 2018-09-16 08:14 | PCM.SURGPN ---
- General Info Date of Service: 09/16/18 POD#: 1 Functional Status: Reports: Other (The pt states she was doing well yesterday and notes more pain today. Hx nausea and vomiting.) - Patient Data Vitals - Most Recent: Last Vital Signs Temp 97.7 F 09/16/18 03:53 Pulse 88 09/16/18 06:28 Resp 14 09/16/18 03:53 BP 109/57 L 09/16/18 06:28 Pulse Ox 96 09/16/18 06:28 Weight - Most Recent: 142 lb 3.2 oz I&O - Last 24 Hours: Intake & Output 09/15/18 09/16/18 09/16/18 22:59 06:59 14:59 Intake Total 3300 800 Output Total 800 3100 Balance 2500 -2300 Lab Results Last 24 Hrs: Laboratory Results - last 24 hr 09/15/18 09/16/18 09/16/18 Range/Units 09:54 06:05 06:05 WBC 22.59 H (3.98-10.04) K/mm3 RBC 3.69 L (3.98-5.22) M/mm3 Hgb 12.4 10.9 L (11.2-15.7) gm/L Hct 37.8 33.0 L (34.1-44.9) % MCV 89.4 (79.4-94.8) fl MCH 29.5 (25.6-32.2) pg MCHC 33.0 (32.2-35.5) g/dl RDW Std Deviation 44.4 (36.4-46.3) fL Plt Count 306 (182-369) K/mm3 MPV 10.3 (9.4-12.3) fl Sodium 139 (136-145) mEq/L Potassium 4.3 (3.5-5.1) mEq/L Chloride 105 (98-107) mEq/L Carbon Dioxide 28 (21-32) mEq/L Anion Gap 10.3 (5-15) BUN 10 (7-18) mg/dL Creatinine 0.8 (0.55-1.02) mg/dL Est Cr Clr Drug Dosing 62.10 mL/min Estimated GFR (MDRD) > 60 (>60) mL/min BUN/Creatinine Ratio 12.5 L (14-18) Glucose 120 H (74-106) mg/dL Calcium 9.4 (8.5-10.1) mg/dL Total Bilirubin 0.5 (0.2-1.0) mg/dL AST 21 (15-37) U/L ALT 37 (14-59) U/L Alkaline Phosphatase 49 (46-116) U/L Total Protein 6.0 L (6.4-8.2) g/dl Albumin 3.0 L (3.4-5.0) g/dl Globulin 3.0 gm/dL Albumin/Globulin Ratio 1.0 (1-2) Med Orders - Current: Current Medications Aspirin (Ecotrin) 325 mg PO BID [facility] Bisacodyl (Dulcolax) 5 mg PO DAILY PRN PRN Reason: Constipation Cholecalciferol (Vitamin D3) 5,000 unit PO DAILY [facility] Clonazepam (Klonopin) 0.5 mg PO BEDTIME [facility] Last Admin: 09/15/18 20:28 Dose: 0.5 mg Cyclobenzaprine HCl (Flexeril) 10 mg PO TID PRN PRN Reason: Spasms Docusate Sodium (Colace) 100 mg PO BID [facility] Last Admin: 09/15/18 20:28 Dose: 100 mg Famotidine (Pepcid) 20 mg PO Q12H [facility] Last Admin: 09/16/18 06:41 Dose: 20 mg Sodium Chloride (Normal Saline) 1,000 mls @ 999 mls/hr IV ASDIRECTED [facility] Last Admin: 09/15/18 14:03 Dose: 999 mls/hr Ketorolac Tromethamine (Toradol) 15 mg IVPUSH Q6H PRN PRN Reason: Pain Last Admin: 09/16/18 07:11 Dose: 15 mg Levothyroxine Sodium (Synthroid) 88 mcg PO DAILY@0700 [facility] Last Admin: 09/16/18 06:41 Dose: 88 mcg Lorazepam (Ativan) 0.5 mg PO Q4H PRN PRN Reason: Anxiety Last Admin: 09/16/18 06:41 Dose: 0.5 mg Magnesium Hydroxide (Milk Of Magnesia) 30 ml PO BID PRN PRN Reason: Constipation Morphine Sulfate (Morphine) 2 mg IVPUSH Q2H PRN PRN Reason: Breakthrough Pain Multivitamins (Thera) 1 each PO DAILY [facility] Naloxone HCl (Narcan) 0.1 mg IVPUSH Q5M PRN PRN Reason: Oversedation Ondansetron HCl (Zofran) 4 mg IVPUSH Q4H PRN PRN Reason: Nausea Last Admin: 09/16/18 05:45 Dose: 4 mg Oxycodone HCl (Oxycodone) 5 mg PO Q4H PRN PRN Reason: Pain Oxycodone/Acetaminophen (Percocet 325-5 Mg) 1 - 2 tab PO Q4H PRN PRN Reason: Pain Last Admin: 09/15/18 17:42 Dose: 2 tab Fluvoxamine Maleate (Er 100 Mg Ptom) 0 each PO BEDTIME [facility] Last Admin: 09/15/18 20:28 Dose: 1 each Senna (Senna) 8.6 mg PO BID PRN PRN Reason: Constipation Discontinued Medications Acetaminophen (Tylenol) 975 mg PO ONETIME [facility] Stop: 09/15/18 13:00 Last Admin: 09/15/18 06:39 Dose: 975 mg Bupivacaine HCl (Marcaine 0.25%) Confirm Administered Dose 30 ml .ROUTE .STK- MED ONE Stop: 09/15/18 06:17 Last Admin: 09/15/18 08:14 Dose: 30 ml Cefazolin Sodium (Ancef) Confirm Administered Dose 2 gm .ROUTE .STK-MED ONE Stop: 09/15/18 06:16 Last Admin: 09/15/18 08:08 Dose: 2 gm Cefazolin Sodium (Ancef) Confirm Administered Dose 2 gm .ROUTE .STK-MED ONE Stop: 09/15/18 07:00 Morphine Sulfate 8 mg/Epinephrine HCl 0.3 mg/Cefuroxime Sodium 750 mg/Ketorolac Tromethamine 30 mg/Sodium Chloride 27.9 ml 0 mg .XX ONETIME ONE Stop: 09/15/18 07:31 Last Admin: 09/15/18 11:46 Dose: Not Given Dexamethasone (Dexamethasone) Confirm Administered Dose 20 mg .ROUTE .STK-MED ONE Stop: 09/15/18 07:37 Diphenhydramine HCl (Benadryl) 25 mg IVPUSH Q6H PRN PRN Reason: Pruritis Stop: 09/15/18 16:00 Ephedrine Sulfate (Ephedrine In Ns) Confirm Administered Dose 25 mg .ROUTE .STK- MED ONE Stop: 09/15/18 06:59 Ephedrine Sulfate (Ephedrine Sulfate) 5 mg IVPUSH ASDIRECTED PRN PRN Reason: Hypotension Stop: 09/15/18 12:00 Epinephrine HCl (Adrenalin) Confirm Administered Dose 1 mg .ROUTE .STK-MED ONE Stop: 09/15/18 09:14 Fentanyl (Sublimaze) 50 mcg IVPUSH Q5M PRN PRN Reason: Pain Stop: 09/15/18 12:00 Lactated Ringer's (Ringers, Lactated) 1,000 mls @ 125 mls/hr IV ASDIRECTED [facility] Stop: 09/15/18 23:00 Last Admin: 09/15/18 06:25 Dose: 125 mls/hr Cefazolin Sodium/Dextrose 2 gm (/ Premix) 50 mls @ 100 mls/hr IV Q8H [facility] Stop: 09/15/18 23:14 Last Admin: 09/15/18 19:51 Dose: Not Given Lidocaine HCl (Xylocaine-Mpf 1%) Confirm Administered Dose 4 mls @ as directed .ROUTE .STK-MED ONE Stop: 09/15/18 06:58 Lidocaine HCl (Xylocaine-Mpf 1%) Confirm Administered Dose 2 mls @ as directed .ROUTE .STK-MED ONE Stop: 09/15/18 07:58 Lactated Ringer's (Ringers, Lactated) Confirm Administered Dose 1,000 mls @ as directed .ROUTE .STK-MED ONE Stop: 09/15/18 08:31 Lactated Ringer's (Ringers, Lactated) Confirm Administered Dose 1,000 mls @ as directed .ROUTE .STK-MED ONE Stop: 09/15/18 08:45 Sodium Chloride (Normal Saline) Confirm Administered Dose 1,000 mls @ as directed .ROUTE .STK-MED ONE Stop: 09/15/18 13:59 Last Admin: 09/15/18 14:34 Dose: Not Given Cefazolin Sodium/Dextrose 2 gm (/ Premix) 50 mls @ 100 mls/hr IV Q8H [facility] Stop: 09/16/18 07:29 Last Admin: 09/16/18 07:25 Dose: 100 mls/hr Sodium Chloride (Normal Saline) 500 mls @ 500 mls/hr IV .BOLUS ONE Stop: 09/16/18 06:59 Last Admin: 09/16/18 06:09 Dose: 500 mls/hr Iodine (Iodine 2% Mild Tincture) Confirm Administered Dose 30 ml .ROUTE .STK- MED ONE Stop: 09/15/18 06:17 Last Admin: 09/15/18 08:05 Dose: 18 ml Ketamine HCl (Ketalar) Confirm Administered Dose 500 mg .ROUTE .STK-MED ONE Stop: 09/15/18 06:58 Ketorolac Tromethamine (Toradol) Confirm Administered Dose 30 mg .ROUTE .STK- MED ONE Stop: 09/15/18 08:30 Lidocaine/Sodium Bicarbonate (Buffered Lidocaine 1% In Ns 8.4%) 0.25 ml IDERM ONETIME PRN PRN Reason: Prior to IV Start Stop: 09/15/18 18:00 Last Admin: 09/15/18 06:25 Dose: 0.25 ml Midazolam HCl (Versed 1 Mg/Ml) Confirm Administered Dose 2 mg .ROUTE .STK-MED ONE Stop: 09/15/18 06:58 Midazolam HCl (Versed 1 Mg/Ml) Confirm Administered Dose 2 mg .ROUTE .STK-MED ONE Stop: 09/15/18 07:08 Ondansetron HCl (Zofran) 4 mg IVPUSH Q6H PRN PRN Reason: Nausea/Vomiting Last Admin: 09/15/18 19:20 Dose: 4 mg Ondansetron HCl (Zofran) Confirm Administered Dose 4 mg .ROUTE .STK-MED ONE Stop: 09/15/18 06:58 Ondansetron HCl (Zofran) 4 mg IVPUSH ONETIME PRN PRN Reason: Nausea/Vomiting Stop: 09/15/18 12:00 Oxycodone HCl (Oxycontin) 10 mg PO ONETIME [facility] Stop: 09/15/18 13:00 Last Admin: 09/15/18 06:40 Dose: 10 mg Phenylephrine HCl (Phenylephrine In Ns 100 Mcg/Ml) Confirm Administered Dose 1 mg .ROUTE .STK-MED ONE Stop: 09/15/18 08:37 Pregabalin (Lyrica) 50 mg PO ONETIME [facility] Stop: 09/15/18 13:00 Last Admin: 09/15/18 06:39 Dose: 50 mg Prochlorperazine Edisylate (Compazine) 5 mg IVPUSH ONETIME ONE Stop: 09/16/18 07:50 Last Admin: 09/16/18 07:58 Dose: 5 mg Propofol (Diprivan 20 Ml) Confirm Administered Dose 600 mg .ROUTE .STK-MED ONE Stop: 09/15/18 06:57 Ropivacaine (Naropin 0.5%) Confirm Administered Dose 30 ml .ROUTE .STK-MED ONE Stop: 09/15/18 09:15 Scopolamine (Transderm-Scop) 1.5 mg TOP ONETIME [facility] Stop: 09/15/18 13:00 Last Admin: 09/15/18 06:19 Dose: 1.5 mg Sodium Chloride (Saline Flush) 10 ml FLUSH ASDIRECTED PRN PRN Reason: Keep Vein Open Stop: 09/15/18 23:00 Tranexamic Acid (Cyklokapron) Confirm Administered Dose 1,000 mg .ROUTE .STK- MED ONE Stop: 09/15/18 06:16 Last Admin: 09/15/18 08:24 Dose: 1,000 mg Vancomycin HCl (Vancomycin) Confirm Administered Dose 1 gm .ROUTE .STK-MED ONE Stop: 09/15/18 06:16 Last Admin: 09/15/18 08:16 Dose: 1 gm - Exam Wound/Incisions: Dressing Dry and Intact General: Alert, Cooperative Lungs: Normal Respiratory Effort Extremities: Other (NVS intact for BLE. Avni's negative.) - Problem List Review Problem List Initiated/Reviewed/Updated: Yes - My Orders Last 24 Hours: Active Orders 24 hr Category Date Time Status Communication Order [RC] ROUTINE Care 09/15/18 08:40 Active Cooling Warming Measures [RC] ASDIRECTED Care 09/15/18 08:40 Inactive Notify Provider [RC] ASDIRECTED Care 09/15/18 08:40 Active Oxygen Therapy [RC] ASDIRECTED Care 09/15/18 08:40 Active Pulse Oximetry [RC] ASDIRECTED Care 09/15/18 08:40 Active Regular Diet [DIET] Diet 09/15/18 Lunch Active CXR [Chest 2V] [CR] Routine Exams 09/16/18 07:17 Ordered BASIC METABOLIC PANEL,BMP [CHEM] AM Lab 09/17/18 05:11 Ordered BASIC METABOLIC PANEL,BMP [CHEM] AM Lab 09/18/18 05:11 Ordered BASIC METABOLIC PANEL,BMP [CHEM] AM Lab 09/19/18 05:11 Ordered BASIC METABOLIC PANEL,BMP [CHEM] AM Lab 09/20/18 05:11 Ordered CBC WITH AUTO DIFF [HEME] AM Lab 09/17/18 05:11 Ordered CBC WITH AUTO DIFF [HEME] AM Lab 09/18/18 05:11 Ordered CBC WITH AUTO DIFF [HEME] AM Lab 09/19/18 05:11 Ordered CBC WITH AUTO DIFF [HEME] AM Lab 09/20/18 05:11 Ordered MAGNESIUM [CHEM] AM Lab 09/17/18 05:11 Ordered MAGNESIUM [CHEM] AM Lab 09/18/18 05:11 Ordered MAGNESIUM [CHEM] AM Lab 09/19/18 05:11 Ordered MAGNESIUM [CHEM] AM Lab 09/20/18 05:11 Ordered Aspirin [Ecotrin] Med 09/16/18 09:00 Active 325 mg PO BID Cholecalciferol (Vitamin D3) [Vitamin D3] Med 09/16/18 09:00 Active 5,000 unit PO DAILY ClonazePAM [KlonoPIN] Med 09/15/18 21:00 Active 0.5 mg PO BEDTIME Docusate Sodium [Colace] Med 09/15/18 21:00 Active 100 mg PO BID LORazepam [Ativan] Med 09/16/18 06:32 Active 0.5 mg PO Q4H PRN Levothyroxine [Synthroid] Med 09/16/18 07:00 Active 88 mcg PO DAILY@0700 Multivitamins,Therapeutic [Thera] Med 09/16/18 09:00 Active 1 each PO DAILY Ondansetron [Zofran] Med 09/15/18 23:13 Active 4 mg IVPUSH Q4H PRN Patient's Own Medication [Ptom] Med 09/15/18 21:00 Active 0 each PO BEDTIME Sodium Chloride 0.9% [Normal Saline] 1,000 ml Med 09/15/18 14:00 Active IV ASDIRECTED oxyCODONE Med 09/16/18 07:59 Active 5 mg PO Q4H PRN Medication Orders Aspirin (Ecotrin) 325 mg PO BID [facility] Bisacodyl (Dulcolax) 5 mg PO DAILY PRN PRN Reason: Constipation Cholecalciferol (Vitamin D3) 5,000 unit PO DAILY [facility] Clonazepam (Klonopin) 0.5 mg PO BEDTIME [facility] Last Admin: 09/15/18 20:28 Dose: 0.5 mg Cyclobenzaprine HCl (Flexeril) 10 mg PO TID PRN PRN Reason: Spasms Docusate Sodium (Colace) 100 mg PO BID [facility] Last Admin: 09/15/18 20:28 Dose: 100 mg Famotidine (Pepcid) 20 mg PO Q12H [facility] Last Admin: 09/16/18 06:41 Dose: 20 mg Admin: 09/15/18 17:45 Dose: 20 mg Admin: 09/15/18 11:46 Dose: Sodium Chloride (Normal Saline) 1,000 mls @ 999 mls/hr IV ASDIRECTED [facility] Last Admin: 09/15/18 14:03 Dose: 999 mls/hr Ketorolac Tromethamine (Toradol) 15 mg IVPUSH Q6H PRN PRN Reason: Pain Last Admin: 09/16/18 07:11 Dose: 15 mg Admin: 09/15/18 22:14 Dose: 15 mg Levothyroxine Sodium (Synthroid) 88 mcg PO DAILY@0700 [facility] Last Admin: 09/16/18 06:41 Dose: 88 mcg Lorazepam (Ativan) 0.5 mg PO Q4H PRN PRN Reason: Anxiety Last Admin: 09/16/18 06:41 Dose: 0.5 mg Magnesium Hydroxide (Milk Of Magnesia) 30 ml PO BID PRN PRN Reason: Constipation Morphine Sulfate (Morphine) 2 mg IVPUSH Q2H PRN PRN Reason: Breakthrough Pain Multivitamins (Thera) 1 each PO DAILY [facility] Naloxone HCl (Narcan) 0.1 mg IVPUSH Q5M PRN PRN Reason: Oversedation Ondansetron HCl (Zofran) 4 mg IVPUSH Q4H PRN PRN Reason: Nausea Last Admin: 09/16/18 05:45 Dose: 4 mg Admin: 09/15/18 23:23 Dose: 4 mg Oxycodone HCl (Oxycodone) 5 mg PO Q4H PRN PRN Reason: Pain Oxycodone/Acetaminophen (Percocet 325-5 Mg) 1 - 2 tab PO Q4H PRN PRN Reason: Pain Last Admin: 09/15/18 17:42 Dose: 2 tab Fluvoxamine Maleate (Er 100 Mg Ptom) 0 each PO BEDTIME [facility] Last Admin: 09/15/18 20:28 Dose: 1 each Senna (Senna) 8.6 mg PO BID PRN PRN Reason: Constipation - Assessment Assessment (Free Text/Narrative):: POD#1 - right TKA - Plan Plan (Free Text/Narrative):: 1. Will add oxycodone 5mg to pain management regimen. 2. Hospitalist service has ordered UA and CXR due to leukocytosis. 3. 325mg ASA PO BID, frequent mobility, TEDs, SCDs. 4. Hgb 10.9 today.
[2018-09-16] MEDS: Cholecalciferol (Vitamin D3) 5,000 UNIT Tab PO SCH (08:55)
[2018-09-16] MEDS: Multivitamins,Therapeutic Tab PO SCH (08:55)
[2018-09-16] MEDS: Aspirin 325 MG Tab.EC PO SCH ×2 (08:55→21:26)
[2018-09-16] MEDS: Docusate Sodium 100 MG Cap PO SCH ×2 (08:55→21:26)
--- NOTE | 2018-09-16 10:22 | CR ---
Chest: Two views of the chest were obtained. Comparison: Prior chest x-ray of 09/03/18. Heart size and mediastinum are normal. Lungs are clear. Bony structures are unremarkable for the patient's age. Impression: 1. Nothing acute is seen on two-view chest x-ray. Diagnostic code #1
[2018-09-16] MEDS: oxyCODONE 5 MG Tab PO PRN ×3 (11:42→22:15)
[2018-09-16] MEDS: Sodium Chloride 0.9% 1,000 ML IV SCH ×2 (13:48→23:46)
[2018-09-16] MEDS: ClonazePAM 0.5 MG Tab PO SCH (21:25)
[2018-09-16] MEDS: FLUVOXAMINE MALEATE 100 MG PO SCH (21:25)
[2018-09-17] MEDS: Acetaminophen/oxyCODONE 325-5 MG Tab PO PRN ×3 (00:08→10:52)
[2018-09-17] MEDS: Famotidine 20 MG Tab PO SCH (06:30)
[2018-09-17] MEDS: Levothyroxine 88 MCG Tab PO SCH (06:30)
--- NOTE | 2018-09-17 07:12 | PCM.PN ---
- General Info Date of Service: 09/17/18 Admission Dx/Problem (Free Text): Admission Diagnosis/Problem Admission Diagnosis/Problem Osteoarthritis of knee Functional Status: Reports: Pain Controlled, Tolerating Diet, Ambulating, Urinating, Incentive Spirometry. Denies: New Symptoms - Review of Systems General: Reports: No Symptoms. Denies: Fever, Weakness, Malaise, Chills HEENT: Reports: No Symptoms. Denies: Eye Pain, Headaches, Sore Throat Pulmonary: Reports: No Symptoms. Denies: Shortness of Breath, Pleuritic Chest Pain, Cough, Sputum, Wheezing Cardiovascular: Reports: No Symptoms. Denies: Chest Pain, Palpitations, Dyspnea on Exertion, Edema, Lightheadedness Gastrointestinal: Reports: No Symptoms. Denies: Abdominal Pain, Constipation, Diarrhea, Nausea (none today ), Vomiting (none today ) Genitourinary: Reports: No Symptoms. Denies: Pain Musculoskeletal: Reports: Leg Pain Skin: Reports: No Symptoms. Denies: Cyanosis Neurological: Reports: No Symptoms. Denies: Confusion Psychiatric: Reports: No Symptoms - Patient Data Vitals - Most Recent: Last Vital Signs Temp 98.8 F 09/17/18 05:00 Pulse 95 09/17/18 05:00 Resp 16 09/17/18 05:00 BP 90/72 09/17/18 05:00 Pulse Ox 96 09/17/18 05:00 Weight - Most Recent: 142 lb 3.2 oz I&O - Last 24 Hours: Intake & Output 09/16/18 09/17/18 09/17/18 22:59 06:59 14:59 Intake Total 1540 2374 Output Total 1200 1400 Balance 340 974 Lab Results Last 24 Hours: Laboratory Results - last 24 hr 09/16/18 09/16/18 09/17/18 Range/Units 06:05 12:28 05:55 WBC 15.86 H (3.98-10.04) K/mm3 RBC 3.00 L (3.98-5.22) M/mm3 Hgb 8.8 L (11.2-15.7) gm/L Hct 27.6 L (34.1-44.9) % MCV 92.0 (79.4-94.8) fl MCH 29.3 (25.6-32.2) pg MCHC 31.9 L (32.2-35.5) g/dl RDW Std Deviation 47.4 H (36.4-46.3) fL Plt Count 251 (182-369) K/mm3 MPV 10.6 (9.4-12.3) fl Neut % (Auto) 63.2 (34.0-71.1) % Lymph % (Auto) 20.3 (19.3-51.7) % [place] % (Auto) 16.0 H (4.7-12.5) % Eos % (Auto) 0.1 L (0.7-5.8) Baso % (Auto) 0.1 (0.1-1.2) % Neut # (Auto) 10.02 H (1.56-6.13) K/mm3 Lymph # (Auto) 3.22 (1.18-3.74) K/mm3 [place] # (Auto) 2.53 H (0.24-0.36) K/mm3 Eos # (Auto) 0.02 L (0.04-0.36) K/mm3 Baso # (Auto) 0.02 (0.01-0.08) K/mm3 Sodium 139 (136-145) mEq/L Potassium 4.3 (3.5-5.1) mEq/L Chloride 105 (98-107) mEq/L Carbon Dioxide 28 (21-32) mEq/L Anion Gap 10.3 (5-15) BUN 10 (7-18) mg/dL Creatinine 0.8 (0.55-1.02) mg/dL Est Cr Clr Drug Dosing 62.10 mL/min Estimated GFR (MDRD) > 60 (>60) mL/min BUN/Creatinine Ratio 12.5 L (14-18) Glucose 120 H (74-106) mg/dL Calcium 9.4 (8.5-10.1) mg/dL Total Bilirubin 0.5 (0.2-1.0) mg/dL AST 21 (15-37) U/L ALT 37 (14-59) U/L Alkaline Phosphatase 49 (46-116) U/L Total Protein 6.0 L (6.4-8.2) g/dl Albumin 3.0 L (3.4-5.0) g/dl Globulin 3.0 gm/dL Albumin/Globulin Ratio 1.0 (1-2) Urine Color Yellow (Yellow) Urine Appearance Clear (Clear) Urine pH 6.0 (5.0-8.0) Ur Specific [place] 1.020 (1.005-1.030) Urine Protein Trace H (Negative) Urine Glucose (UA) Negative (Negative) Urine Ketones Negative (Negative) Urine Occult Blood Negative (Negative) Urine Nitrite Negative (Negative) Urine Bilirubin Negative (Negative) Urine Urobilinogen 0.2 (0.2-1.0) Ur Leukocyte Esterase Negative (Negative) Urine RBC 0-5 (0-5) /hpf Urine WBC 0-5 (0-5) /hpf Ur Epithelial Cells 0-5 (0-5) /hpf Ur Renal Epithelial Cell 0-5 (0-5) /hpf Urine Bacteria Rare (FEW) /hpf Urine Mucus Few (FEW) /hpf Med Orders - Current: Current Medications Aspirin (Ecotrin) 325 mg PO BID [facility] Last Admin: 09/16/18 21:26 Dose: 325 mg Bisacodyl (Dulcolax) 5 mg PO DAILY PRN PRN Reason: Constipation Cholecalciferol (Vitamin D3) 5,000 unit PO DAILY [facility] Last Admin: 09/16/18 08:55 Dose: 5,000 unit Clonazepam (Klonopin) 0.5 mg PO BEDTIME [facility] Last Admin: 09/16/18 21:25 Dose: 0.5 mg Cyclobenzaprine HCl (Flexeril) 10 mg PO TID PRN PRN Reason: Spasms Last Admin: 09/16/18 18:10 Dose: 10 mg Docusate Sodium (Colace) 100 mg PO BID [facility] Last Admin: 09/16/18 21:26 Dose: 100 mg Famotidine (Pepcid) 20 mg PO Q12H [facility] Last Admin: 09/17/18 06:30 Dose: 20 mg Sodium Chloride (Normal Saline) 1,000 mls @ 100 mls/hr IV ASDIRECTED [facility] Last Admin: 09/16/18 23:46 Dose: 100 mls/hr Levothyroxine Sodium (Synthroid) 88 mcg PO DAILY@0700 [facility] Last Admin: 09/17/18 06:30 Dose: 88 mcg Lorazepam (Ativan) 0.5 mg PO Q4H PRN PRN Reason: Anxiety Last Admin: 09/16/18 06:41 Dose: 0.5 mg Magnesium Hydroxide (Milk Of Magnesia) 30 ml PO BID PRN PRN Reason: Constipation Morphine Sulfate (Morphine) 2 mg IVPUSH Q2H PRN PRN Reason: Breakthrough Pain Last Admin: 09/16/18 17:09 Dose: 2 mg Multivitamins (Thera) 1 each PO DAILY [facility] Last Admin: 09/16/18 08:55 Dose: 1 each Naloxone HCl (Narcan) 0.1 mg IVPUSH Q5M PRN PRN Reason: Oversedation Ondansetron HCl (Zofran) 4 mg IVPUSH Q4H PRN PRN Reason: Nausea Last Admin: 09/16/18 05:45 Dose: 4 mg Oxycodone HCl (Oxycodone) 5 mg PO Q4H PRN PRN Reason: Pain Last Admin: 09/16/18 22:15 Dose: 5 mg Oxycodone/Acetaminophen (Percocet 325-5 Mg) 1 - 2 tab PO Q4H PRN PRN Reason: Pain Last Admin: 09/17/18 05:07 Dose: 2 tab Fluvoxamine Maleate (Er 100 Mg Ptom) 0 each PO BEDTIME [facility] Last Admin: 09/16/18 21:25 Dose: 1 each Senna (Senna) 8.6 mg PO BID PRN PRN Reason: Constipation Discontinued Medications Acetaminophen (Tylenol) 975 mg PO ONETIME [facility] Stop: 09/15/18 13:00 Last Admin: 09/15/18 06:39 Dose: 975 mg Bupivacaine HCl (Marcaine 0.25%) Confirm Administered Dose 30 ml .ROUTE .STK- MED ONE Stop: 09/15/18 06:17 Last Admin: 09/15/18 08:14 Dose: 30 ml Cefazolin Sodium (Ancef) Confirm Administered Dose 2 gm .ROUTE .STK-MED ONE Stop: 09/15/18 06:16 Last Admin: 09/15/18 08:08 Dose: 2 gm Cefazolin Sodium (Ancef) Confirm Administered Dose 2 gm .ROUTE .STK-MED ONE Stop: 09/15/18 07:00 Morphine Sulfate 8 mg/Epinephrine HCl 0.3 mg/Cefuroxime Sodium 750 mg/Ketorolac Tromethamine 30 mg/Sodium Chloride 27.9 ml 0 mg .XX ONETIME ONE Stop: 09/15/18 07:31 Last Admin: 09/15/18 11:46 Dose: Not Given Dexamethasone (Dexamethasone) Confirm Administered Dose 20 mg .ROUTE .STK-MED ONE Stop: 09/15/18 07:37 Diphenhydramine HCl (Benadryl) 25 mg IVPUSH Q6H PRN PRN Reason: Pruritis Stop: 09/15/18 16:00 Ephedrine Sulfate (Ephedrine In Ns) Confirm Administered Dose 25 mg .ROUTE .STK- MED ONE Stop: 09/15/18 06:59 Ephedrine Sulfate (Ephedrine Sulfate) 5 mg IVPUSH ASDIRECTED PRN PRN Reason: Hypotension Stop: 09/15/18 12:00 Epinephrine HCl (Adrenalin) Confirm Administered Dose 1 mg .ROUTE .STK-MED ONE Stop: 09/15/18 09:14 Fentanyl (Sublimaze) 50 mcg IVPUSH Q5M PRN PRN Reason: Pain Stop: 09/15/18 12:00 Lactated Ringer's (Ringers, Lactated) 1,000 mls @ 125 mls/hr IV ASDIRECTED [facility] Stop: 09/15/18 23:00 Last Admin: 09/15/18 06:25 Dose: 125 mls/hr Cefazolin Sodium/Dextrose 2 gm (/ Premix) 50 mls @ 100 mls/hr IV Q8H [facility] Stop: 09/15/18 23:14 Last Admin: 09/15/18 19:51 Dose: Not Given Lidocaine HCl (Xylocaine-Mpf 1%) Confirm Administered Dose 4 mls @ as directed .ROUTE .STK-MED ONE Stop: 09/15/18 06:58 Lidocaine HCl (Xylocaine-Mpf 1%) Confirm Administered Dose 2 mls @ as directed .ROUTE .STK-MED ONE Stop: 09/15/18 07:58 Lactated Ringer's (Ringers, Lactated) Confirm Administered Dose 1,000 mls @ as directed .ROUTE .STK-MED ONE Stop: 09/15/18 08:31 Lactated Ringer's (Ringers, Lactated) Confirm Administered Dose 1,000 mls @ as directed .ROUTE .STK-MED ONE Stop: 09/15/18 08:45 Sodium Chloride (Normal Saline) 1,000 mls @ 999 mls/hr IV ASDIRECTED [facility] Last Admin: 09/15/18 14:03 Dose: 999 mls/hr Sodium Chloride (Normal Saline) Confirm Administered Dose 1,000 mls @ as directed .ROUTE .STK-MED ONE Stop: 09/15/18 13:59 Last Admin: 09/15/18 14:34 Dose: Not Given Cefazolin Sodium/Dextrose 2 gm (/ Premix) 50 mls @ 100 mls/hr IV Q8H [facility] Stop: 09/16/18 07:29 Last Admin: 09/16/18 07:25 Dose: 100 mls/hr Sodium Chloride (Normal Saline) 500 mls @ 500 mls/hr IV .BOLUS ONE Stop: 09/16/18 06:59 Last Admin: 09/16/18 06:09 Dose: 500 mls/hr Iodine (Iodine 2% Mild Tincture) Confirm Administered Dose 30 ml .ROUTE .STK- MED ONE Stop: 09/15/18 06:17 Last Admin: 09/15/18 08:05 Dose: 18 ml Ketamine HCl (Ketalar) Confirm Administered Dose 500 mg .ROUTE .STK-MED ONE Stop: 09/15/18 06:58 Ketorolac Tromethamine (Toradol) 15 mg IVPUSH Q6H PRN PRN Reason: Pain Last Admin: 09/16/18 16:52 Dose: 15 mg Ketorolac Tromethamine (Toradol) Confirm Administered Dose 30 mg .ROUTE .STK- MED ONE Stop: 09/15/18 08:30 Lidocaine/Sodium Bicarbonate (Buffered Lidocaine 1% In Ns 8.4%) 0.25 ml IDERM ONETIME PRN PRN Reason: Prior to IV Start Stop: 09/15/18 18:00 Last Admin: 09/15/18 06:25 Dose: 0.25 ml Midazolam HCl (Versed 1 Mg/Ml) Confirm Administered Dose 2 mg .ROUTE .STK-MED ONE Stop: 09/15/18 06:58 Midazolam HCl (Versed 1 Mg/Ml) Confirm Administered Dose 2 mg .ROUTE .STK-MED ONE Stop: 09/15/18 07:08 Ondansetron HCl (Zofran) 4 mg IVPUSH Q6H PRN PRN Reason: Nausea/Vomiting Last Admin: 09/15/18 19:20 Dose: 4 mg Ondansetron HCl (Zofran) Confirm Administered Dose 4 mg .ROUTE .STK-MED ONE Stop: 09/15/18 06:58 Ondansetron HCl (Zofran) 4 mg IVPUSH ONETIME PRN PRN Reason: Nausea/Vomiting Stop: 09/15/18 12:00 Oxycodone HCl (Oxycontin) 10 mg PO ONETIME [facility] Stop: 09/15/18 13:00 Last Admin: 09/15/18 06:40 Dose: 10 mg Phenylephrine HCl (Phenylephrine In Ns 100 Mcg/Ml) Confirm Administered Dose 1 mg .ROUTE .STK-MED ONE Stop: 09/15/18 08:37 Pregabalin (Lyrica) 50 mg PO ONETIME [facility] Stop: 09/15/18 13:00 Last Admin: 09/15/18 06:39 Dose: 50 mg Prochlorperazine Edisylate (Compazine) 5 mg IVPUSH ONETIME ONE Stop: 09/16/18 07:50 Last Admin: 09/16/18 07:58 Dose: 5 mg Propofol (Diprivan 20 Ml) Confirm Administered Dose 600 mg .ROUTE .STK-MED ONE Stop: 09/15/18 06:57 Ropivacaine (Naropin 0.5%) Confirm Administered Dose 30 ml .ROUTE .STK-MED ONE Stop: 09/15/18 09:15 Scopolamine (Transderm-Scop) 1.5 mg TOP ONETIME [facility] Stop: 09/15/18 13:00 Last Admin: 09/15/18 06:19 Dose: 1.5 mg Sodium Chloride (Saline Flush) 10 ml FLUSH ASDIRECTED PRN PRN Reason: Keep Vein Open Stop: 09/15/18 23:00 Tranexamic Acid (Cyklokapron) Confirm Administered Dose 1,000 mg .ROUTE .STK- MED ONE Stop: 09/15/18 06:16 Last Admin: 09/15/18 08:24 Dose: 1,000 mg Vancomycin HCl (Vancomycin) Confirm Administered Dose 1 gm .ROUTE .STK-MED ONE Stop: 09/15/18 06:16 Last Admin: 09/15/18 08:16 Dose: 1 gm - Exam Quality Assessment: DVT Prophylaxis. No: Supplemental Oxygen, Urine Catheter General: Alert, Oriented, Cooperative, No Acute Distress HEENT: Pupils Equal, Pupils Reactive, EOMI, Mucous Membr. Moist/[place] Neck: Supple, Trachea Midline, No JVD Lungs: Clear to Auscultation, Normal Respiratory Effort Cardiovascular: Regular Rate, Regular Rhythm GI/Abdominal Exam: Normal Bowel Sounds, Soft, Non-Tender, No Distention, No Abnormal Bruit (Female) Exam: Deferred Back Exam: Normal Inspection, Full Range of Motion Extremities: No Pedal Edema, Normal Capillary Refill, Leg Pain, Limited Range of Motion, Other Peripheral Pulses: 3+: Radial (L), Radial (R), Dorsalis Pedis (L), Dorsalis Pedis (R) Skin: Warm, Dry, Intact Wound/Incisions: Dressing Dry and Intact, No Drainage Neurological: No New Focal Deficit Psy/Mental Status: Alert, Normal Affect, Normal Mood - Problem List & Annotations (1) S/P total knee arthroplasty SNOMED Code(s): 0843272353377, 920772785, 0672940423631 Code(s): Z96.659 - PRESENCE OF UNSPECIFIED ARTIFICIAL KNEE JOINT Status: Acute Priority: High Qualifiers: Laterality: right Qualified Code(s): Z96.651 - Presence of right artificial knee joint (2) Hypothyroidism SNOMED Code(s): 81464141 Code(s): E03.9 - HYPOTHYROIDISM, UNSPECIFIED Status: Chronic Priority: Low (3) Impaired fasting glucose SNOMED Code(s): 690230254 Code(s): R73.01 - IMPAIRED FASTING GLUCOSE Status: Chronic Priority: Low (4) Anxiety SNOMED Code(s): 97840241 Code(s): F41.9 - ANXIETY DISORDER, UNSPECIFIED Status: Acute Priority: High (5) Vitamin D deficiency SNOMED Code(s): 94991494 Code(s): E55.9 - VITAMIN D DEFICIENCY, UNSPECIFIED Status: Chronic Priority: Medium (6) Post-operative nausea and vomiting SNOMED Code(s): 0959016 Code(s): R11.2 - NAUSEA WITH VOMITING, UNSPECIFIED; Z98.890 - OTHER SPECIFIED POSTPROCEDURAL STATES Status: Acute Priority: High (7) Leukocytosis SNOMED Code(s): 719051018, 376344575 Code(s): D72.829 - ELEVATED WHITE BLOOD CELL COUNT, UNSPECIFIED Status: Acute Priority: Medium Qualifiers: Leukocytosis type: unspecified Qualified Code(s): D72.829 - Elevated white blood cell count, unspecified - Problem List Review Problem List Initiated/Reviewed/Updated: Yes - My Orders Last 24 Hours: My Active Orders 09/16/18 12:30 Sodium Chloride 0.9% [Normal Saline] 1,000 ml IV ASDIRECTED 09/17/18 05:55 BASIC METABOLIC PANEL,BMP [CHEM] AM CBC WITH AUTO DIFF [HEME] AM MAGNESIUM [CHEM] AM 09/18/18 05:11 BASIC METABOLIC PANEL,BMP [CHEM] AM CBC WITH AUTO DIFF [HEME] AM MAGNESIUM [CHEM] AM 09/19/18 05:11 BASIC METABOLIC PANEL,BMP [CHEM] AM CBC WITH AUTO DIFF [HEME] AM MAGNESIUM [CHEM] AM 09/20/18 05:11 BASIC METABOLIC PANEL,BMP [CHEM] AM CBC WITH AUTO DIFF [HEME] AM MAGNESIUM [CHEM] AM - Plan Plan:: I/P: Acute: S/P right total knee arthroplasty - post-operative day 2 -DVT prophylaxis and pain management per primary care team -PT/OT -IS/RT -Monitor oxygen saturation -Titrate oxygen as needed -Home medications reviewed -Vital signs stable -Monitor labs -Pre-operative Hgb was 14.3; 12.4 after surgery; Now 10.9-->8.8 (likely worsened by hemodilution from IV fluids) -Pre-operative GFR was >60; Now >60--> greater than 60 Osteoarthritis of Right knee -Pain management per primary care team Post operative HTN -One reported episode yesterday evening -750mL blood loss during surgery -Improved with 500mL fluid bolus -IV fluids as ordered -PCP reports patient is normally on lower side of normal Leukocytosis, improving -Likely stress reaction from pain/emesis -WBC 22.59-->15.86 -Denies urinary symptoms or cough/SOB -CXR Negative -UA Negative Hypokalemia -Potassium 3.4 -2/2 poor intake after surgery/vomiting -Supplemented Hypomagnesemia -Magnesium 1.7 -2/2 poor intake after surgery/vomiting -Supplemented S/P Post-operative nausea and vomiting -Notes increased anxiety and pain -Pain medications per primary team -Zofran given -Scopolamine patch in place -Compazine ordered Chronic: Hypothyroidism IFG Menopausal Anxiety Vitamin D Depression Splenectomy Plan: CM for discharge planning GI prophylaxis Home medications as indicated Other orders as listed above Routine AM labs She is a full code. Her PCP is Brooke Javed NP From a hospitalist standpoint Sherley is doing much better today. She has been up working with therapies and ambulating. Her nausea and vomiting has resolved. Her pain is controlled at this point. She has been urinating as often of oxygen. Her her hemoglobin this morning was 8.8. She did have a reported 750 mL of blood loss during surgery and has been on IV fluids at 100 mils an hour since yesterday afternoon. Discussed this with Dr. Antunez and Dr. Castro. We will prescribe iron supplementation and have her follow-up with her primary care provider on Saturday. Recommending a repeat CBC, CMP, and magnesium at that time. Her magnesium and potassium were just slightly low today. Suspect this is secondary to vomiting yesterday along with minimal intake secondary to nausea. This was supplemented prior to discharge orally. Otherwise her labs and vital signs have remained stable. Blood pressure was on the low end of normal however her primary care provider was contacted and does report this is her baseline. She did have leukocytosis of nearly 23 after surgery. Chest x-ray and UA were performed to ensure this is stress reaction and not infectious cause. She has not had any fevers. Chest x-ray and UA were both negative. Primary team was updated on her progress. She will be discharged home today pending primary team and PT/OT agreement. As mentioned she will follow-up with primary care on Saturday for lab recheck and to ensure she is heading in the right direction. Thank you for allowing us to participate in the care of this patient!!
[2018-09-17] MEDS ORDERED: Magnesium Oxide 400 MG Tab PO ONE (08:59)
[2018-09-17] MEDS ORDERED: Iron Polysaccharides Complex 150 MG Cap PO SCH (09:00)
--- NOTE | 2018-09-17 09:14 | PCM48HPAN ---
Post Anesthesia Note - EVALUATION WITHIN 48HRS OF ANESTHETIC Vital Signs in Normal Range: Yes Patient Participated in Evaluation: Yes Respiratory Function Stable: Yes Airway Patent: Yes Cardiovascular Function Stable: Yes Hydration Status Stable: Yes Pain Control Satisfactory: Yes Nausea and Vomiting Control Satisfactory: Yes Mental Status Recovered: Yes - COMMENTS/OBSERVATIONS Free Text/Narrative:: Sherley is feeling much better today. Notes some nausea when she first gets out of bed and her knee is throbbing. Has been up moving around and finished her breakfast. No anesthetic complications noted.
[2018-09-17] MEDS: Cholecalciferol (Vitamin D3) 5,000 UNIT Tab PO SCH (09:43)
--- NOTE | 2018-09-17 09:44 | PCM.SURGPN ---
- General Info Date of Service: 09/17/18 POD#: 2 Functional Status: Reports: Pain Controlled, Tolerating Diet, Ambulating, Urinating, Incentive Spirometry, Other (Nursing states pt is much improved today.) - Patient Data Vitals - Most Recent: Last Vital Signs Temp 97.5 F 09/17/18 09:34 Pulse 67 09/17/18 09:34 Resp 14 09/17/18 09:34 BP 96/67 09/17/18 09:34 Pulse Ox 94 L 09/17/18 09:34 Weight - Most Recent: 142 lb 3.2 oz I&O - Last 24 Hours: Intake & Output 09/16/18 09/17/18 09/17/18 22:59 06:59 14:59 Intake Total 1540 2374 Output Total 1200 1400 Balance 340 974 Lab Results Last 24 Hrs: Laboratory Results - last 24 hr 09/16/18 09/17/18 09/17/18 Range/Units 12:28 05:55 05:55 WBC 15.86 H (3.98-10.04) K/mm3 RBC 3.00 L (3.98-5.22) M/mm3 Hgb 8.8 L (11.2-15.7) gm/L Hct 27.6 L (34.1-44.9) % MCV 92.0 (79.4-94.8) fl MCH 29.3 (25.6-32.2) pg MCHC 31.9 L (32.2-35.5) g/dl RDW Std Deviation 47.4 H (36.4-46.3) fL Plt Count 251 (182-369) K/mm3 MPV 10.6 (9.4-12.3) fl Neut % (Auto) 63.2 (34.0-71.1) % Lymph % (Auto) 20.3 (19.3-51.7) % Crosby % (Auto) 16.0 H (4.7-12.5) % Eos % (Auto) 0.1 L (0.7-5.8) Baso % (Auto) 0.1 (0.1-1.2) % Neut # (Auto) 10.02 H (1.56-6.13) K/mm3 Lymph # (Auto) 3.22 (1.18-3.74) K/mm3 Crosby # (Auto) 2.53 H (0.24-0.36) K/mm3 Eos # (Auto) 0.02 L (0.04-0.36) K/mm3 Baso # (Auto) 0.02 (0.01-0.08) K/mm3 Manual Slide Review Abnormal smear Sodium 139 (136-145) mEq/L Potassium 3.4 L (3.5-5.1) mEq/L Chloride 105 (98-107) mEq/L Carbon Dioxide 28 (21-32) mEq/L Anion Gap 9.4 (5-15) BUN 8 (7-18) mg/dL Creatinine 0.7 (0.55-1.02) mg/dL Est Cr Clr Drug Dosing 70.98 mL/min Estimated GFR (MDRD) > 60 (>60) mL/min BUN/Creatinine Ratio 11.4 L (14-18) Glucose 105 (74-106) mg/dL Calcium 8.2 L (8.5-10.1) mg/dL Magnesium 1.7 L (1.8-2.4) mg/dl Urine Color Yellow (Yellow) Urine Appearance Clear (Clear) Urine pH 6.0 (5.0-8.0) Ur Specific Carbon 1.020 (1.005-1.030) Urine Protein Trace H (Negative) Urine Glucose (UA) Negative (Negative) Urine Ketones Negative (Negative) Urine Occult Blood Negative (Negative) Urine Nitrite Negative (Negative) Urine Bilirubin Negative (Negative) Urine Urobilinogen 0.2 (0.2-1.0) Ur Leukocyte Esterase Negative (Negative) Urine RBC 0-5 (0-5) /hpf Urine WBC 0-5 (0-5) /hpf Ur Epithelial Cells 0-5 (0-5) /hpf Ur Renal Epithelial Cell 0-5 (0-5) /hpf Urine Bacteria Rare (FEW) /hpf Urine Mucus Few (FEW) /hpf Med Orders - Current: Current Medications Aspirin (Ecotrin) 325 mg PO BID [facility] Last Admin: 09/16/18 21:26 Dose: 325 mg Bisacodyl (Dulcolax) 5 mg PO DAILY PRN PRN Reason: Constipation Cholecalciferol (Vitamin D3) 5,000 unit PO DAILY [facility] Last Admin: 09/16/18 08:55 Dose: 5,000 unit Clonazepam (Klonopin) 0.5 mg PO BEDTIME [facility] Last Admin: 09/16/18 21:25 Dose: 0.5 mg Cyclobenzaprine HCl (Flexeril) 10 mg PO TID PRN PRN Reason: Spasms Last Admin: 09/16/18 18:10 Dose: 10 mg Docusate Sodium (Colace) 100 mg PO BID [facility] Last Admin: 09/16/18 21:26 Dose: 100 mg Famotidine (Pepcid) 20 mg PO Q12H [facility] Last Admin: 09/17/18 06:30 Dose: 20 mg Levothyroxine Sodium (Synthroid) 88 mcg PO DAILY@0700 [facility] Last Admin: 09/17/18 06:30 Dose: 88 mcg Lorazepam (Ativan) 0.5 mg PO Q4H PRN PRN Reason: Anxiety Last Admin: 09/16/18 06:41 Dose: 0.5 mg Magnesium Hydroxide (Milk Of Magnesia) 30 ml PO BID PRN PRN Reason: Constipation Morphine Sulfate (Morphine) 2 mg IVPUSH Q2H PRN PRN Reason: Breakthrough Pain Last Admin: 09/16/18 17:09 Dose: 2 mg Multivitamins (Thera) 1 each PO DAILY [facility] Last Admin: 09/16/18 08:55 Dose: 1 each Naloxone HCl (Narcan) 0.1 mg IVPUSH Q5M PRN PRN Reason: Oversedation Ondansetron HCl (Zofran) 4 mg IVPUSH Q4H PRN PRN Reason: Nausea Last Admin: 09/16/18 05:45 Dose: 4 mg Oxycodone HCl (Oxycodone) 5 mg PO Q4H PRN PRN Reason: Pain Last Admin: 09/16/18 22:15 Dose: 5 mg Oxycodone/Acetaminophen (Percocet 325-5 Mg) 1 - 2 tab PO Q4H PRN PRN Reason: Pain Last Admin: 09/17/18 05:07 Dose: 2 tab Fluvoxamine Maleate (Er 100 Mg Ptom) 0 each PO BEDTIME [facility] Last Admin: 09/16/18 21:25 Dose: 1 each Polysaccharide Iron Complex (Ferrex 150) 150 mg PO DAILY [facility] Potassium Chloride (Klor-Con M20) 40 meq PO Q4H [facility] Stop: 09/17/18 13:01 Senna (Senna) 8.6 mg PO BID PRN PRN Reason: Constipation Discontinued Medications Acetaminophen (Tylenol) 975 mg PO ONETIME [facility] Stop: 09/15/18 13:00 Last Admin: 09/15/18 06:39 Dose: 975 mg Bupivacaine HCl (Marcaine 0.25%) Confirm Administered Dose 30 ml .ROUTE .STK- MED ONE Stop: 09/15/18 06:17 Last Admin: 09/15/18 08:14 Dose: 30 ml Cefazolin Sodium (Ancef) Confirm Administered Dose 2 gm .ROUTE .STK-MED ONE Stop: 09/15/18 06:16 Last Admin: 09/15/18 08:08 Dose: 2 gm Cefazolin Sodium (Ancef) Confirm Administered Dose 2 gm .ROUTE .STK-MED ONE Stop: 09/15/18 07:00 Morphine Sulfate 8 mg/Epinephrine HCl 0.3 mg/Cefuroxime Sodium 750 mg/Ketorolac Tromethamine 30 mg/Sodium Chloride 27.9 ml 0 mg .XX ONETIME ONE Stop: 09/15/18 07:31 Last Admin: 09/15/18 11:46 Dose: Not Given Dexamethasone (Dexamethasone) Confirm Administered Dose 20 mg .ROUTE .STK-MED ONE Stop: 09/15/18 07:37 Diphenhydramine HCl (Benadryl) 25 mg IVPUSH Q6H PRN PRN Reason: Pruritis Stop: 09/15/18 16:00 Ephedrine Sulfate (Ephedrine In Ns) Confirm Administered Dose 25 mg .ROUTE .STK- MED ONE Stop: 09/15/18 06:59 Ephedrine Sulfate (Ephedrine Sulfate) 5 mg IVPUSH ASDIRECTED PRN PRN Reason: Hypotension Stop: 09/15/18 12:00 Epinephrine HCl (Adrenalin) Confirm Administered Dose 1 mg .ROUTE .STK-MED ONE Stop: 09/15/18 09:14 Fentanyl (Sublimaze) 50 mcg IVPUSH Q5M PRN PRN Reason: Pain Stop: 09/15/18 12:00 Lactated Ringer's (Ringers, Lactated) 1,000 mls @ 125 mls/hr IV ASDIRECTED [facility] Stop: 09/15/18 23:00 Last Admin: 09/15/18 06:25 Dose: 125 mls/hr Cefazolin Sodium/Dextrose 2 gm (/ Premix) 50 mls @ 100 mls/hr IV Q8H [facility] Stop: 09/15/18 23:14 Last Admin: 09/15/18 19:51 Dose: Not Given Lidocaine HCl (Xylocaine-Mpf 1%) Confirm Administered Dose 4 mls @ as directed .ROUTE .STK-MED ONE Stop: 09/15/18 06:58 Lidocaine HCl (Xylocaine-Mpf 1%) Confirm Administered Dose 2 mls @ as directed .ROUTE .K-MED ONE Stop: 09/15/18 07:58 Lactated Ringer's (Ringers, Lactated) Confirm Administered Dose 1,000 mls @ as directed .ROUTE .K-MED ONE Stop: 09/15/18 08:31 Lactated Ringer's (Ringers, Lactated) Confirm Administered Dose 1,000 mls @ as directed .ROUTE .K-MED ONE Stop: 09/15/18 08:45 Sodium Chloride (Normal Saline) 1,000 mls @ 999 mls/hr IV ASDIRECTED [facility] Last Admin: 09/15/18 14:03 Dose: 999 mls/hr Sodium Chloride (Normal Saline) Confirm Administered Dose 1,000 mls @ as directed .ROUTE .K-MED ONE Stop: 09/15/18 13:59 Last Admin: 09/15/18 14:34 Dose: Not Given Cefazolin Sodium/Dextrose 2 gm (/ Premix) 50 mls @ 100 mls/hr IV Q8H [facility] Stop: 09/16/18 07:29 Last Admin: 09/16/18 07:25 Dose: 100 mls/hr Sodium Chloride (Normal Saline) 500 mls @ 500 mls/hr IV .BOLUS ONE Stop: 09/16/18 06:59 Last Admin: 09/16/18 06:09 Dose: 500 mls/hr Sodium Chloride (Normal Saline) 1,000 mls @ 100 mls/hr IV ASDIRECTED [facility] Last Admin: 09/16/18 23:46 Dose: 100 mls/hr Iodine (Iodine 2% Mild Tincture) Confirm Administered Dose 30 ml .ROUTE .STK- MED ONE Stop: 09/15/18 06:17 Last Admin: 09/15/18 08:05 Dose: 18 ml Ketamine HCl (Ketalar) Confirm Administered Dose 500 mg .ROUTE .STK-MED ONE Stop: 09/15/18 06:58 Ketorolac Tromethamine (Toradol) 15 mg IVPUSH Q6H PRN PRN Reason: Pain Last Admin: 09/16/18 16:52 Dose: 15 mg Ketorolac Tromethamine (Toradol) Confirm Administered Dose 30 mg .ROUTE .STK- MED ONE Stop: 09/15/18 08:30 Lidocaine/Sodium Bicarbonate (Buffered Lidocaine 1% In Ns 8.4%) 0.25 ml IDERM ONETIME PRN PRN Reason: Prior to IV Start Stop: 09/15/18 18:00 Last Admin: 09/15/18 06:25 Dose: 0.25 ml Magnesium Oxide (Magnesium Oxide) 800 mg PO ONETIME ONE Stop: 09/17/18 09:00 Midazolam HCl (Versed 1 Mg/Ml) Confirm Administered Dose 2 mg .ROUTE .STK-MED ONE Stop: 09/15/18 06:58 Midazolam HCl (Versed 1 Mg/Ml) Confirm Administered Dose 2 mg .ROUTE .STK-MED ONE Stop: 09/15/18 07:08 Ondansetron HCl (Zofran) 4 mg IVPUSH Q6H PRN PRN Reason: Nausea/Vomiting Last Admin: 09/15/18 19:20 Dose: 4 mg Ondansetron HCl (Zofran) Confirm Administered Dose 4 mg .ROUTE .STK-MED ONE Stop: 09/15/18 06:58 Ondansetron HCl (Zofran) 4 mg IVPUSH ONETIME PRN PRN Reason: Nausea/Vomiting Stop: 09/15/18 12:00 Oxycodone HCl (Oxycontin) 10 mg PO ONETIME [facility] Stop: 09/15/18 13:00 Last Admin: 09/15/18 06:40 Dose: 10 mg Phenylephrine HCl (Phenylephrine In Ns 100 Mcg/Ml) Confirm Administered Dose 1 mg .ROUTE .STK-MED ONE Stop: 09/15/18 08:37 Pregabalin (Lyrica) 50 mg PO ONETIME [facility] Stop: 09/15/18 13:00 Last Admin: 09/15/18 06:39 Dose: 50 mg Prochlorperazine Edisylate (Compazine) 5 mg IVPUSH ONETIME ONE Stop: 09/16/18 07:50 Last Admin: 09/16/18 07:58 Dose: 5 mg Propofol (Diprivan 20 Ml) Confirm Administered Dose 600 mg .ROUTE .STK-MED ONE Stop: 09/15/18 06:57 Ropivacaine (Naropin 0.5%) Confirm Administered Dose 30 ml .ROUTE .STK-MED ONE Stop: 09/15/18 09:15 Scopolamine (Transderm-Scop) 1.5 mg TOP ONETIME [facility] Stop: 09/15/18 13:00 Last Admin: 09/15/18 06:19 Dose: 1.5 mg Sodium Chloride (Saline Flush) 10 ml FLUSH ASDIRECTED PRN PRN Reason: Keep Vein Open Stop: 09/15/18 23:00 Tranexamic Acid (Cyklokapron) Confirm Administered Dose 1,000 mg .ROUTE .STK- MED ONE Stop: 09/15/18 06:16 Last Admin: 09/15/18 08:24 Dose: 1,000 mg Vancomycin HCl (Vancomycin) Confirm Administered Dose 1 gm .ROUTE .STK-MED ONE Stop: 09/15/18 06:16 Last Admin: 09/15/18 08:16 Dose: 1 gm - Exam Wound/Incisions: Dressing Dry and Intact General: Alert, Cooperative, No Acute Distress Lungs: Normal Respiratory Effort Extremities: Other (NVS intact for BLE. Avni's negative.) - Problem List Review Problem List Initiated/Reviewed/Updated: Yes - My Orders Last 24 Hours: Active Orders 24 hr Category Date Time Status Ready for Discharge [RC] PER UNIT ROUTINE Care 09/17/18 09:40 Ordered BASIC METABOLIC PANEL,BMP [CHEM] AM Lab 09/18/18 05:11 Ordered BASIC METABOLIC PANEL,BMP [CHEM] AM Lab 09/19/18 05:11 Ordered BASIC METABOLIC PANEL,BMP [CHEM] AM Lab 09/20/18 05:11 Ordered CBC WITH AUTO DIFF [HEME] AM Lab 09/18/18 05:11 Ordered CBC WITH AUTO DIFF [HEME] AM Lab 09/19/18 05:11 Ordered CBC WITH AUTO DIFF [HEME] AM Lab 09/20/18 05:11 Ordered MAGNESIUM [CHEM] AM Lab 09/18/18 05:11 Ordered MAGNESIUM [CHEM] AM Lab 09/19/18 05:11 Ordered MAGNESIUM [CHEM] AM Lab 09/20/18 05:11 Ordered Aspirin [Ecotrin] Med 09/16/18 09:00 Active 325 mg PO BID Cholecalciferol (Vitamin D3) [Vitamin D3] Med 09/16/18 09:00 Active 5,000 unit PO DAILY Iron Polysaccharides Complex [Ferrex 150] Med 09/17/18 09:00 Active 150 mg PO DAILY Multivitamins,Therapeutic [Thera] Med 09/16/18 09:00 Active 1 each PO DAILY Potassium Chloride [Klor-Con M20] Med 09/17/18 09:00 Active 40 meq PO Q4H Medication Orders Aspirin (Ecotrin) 325 mg PO BID [facility] Last Admin: 09/16/18 21:26 Dose: 325 mg Admin: 09/16/18 08:55 Dose: 325 mg Bisacodyl (Dulcolax) 5 mg PO DAILY PRN PRN Reason: Constipation Cholecalciferol (Vitamin D3) 5,000 unit PO DAILY [facility] Last Admin: 09/16/18 08:55 Dose: 5,000 unit Clonazepam (Klonopin) 0.5 mg PO BEDTIME [facility] Last Admin: 09/16/18 21:25 Dose: 0.5 mg Admin: 09/15/18 20:28 Dose: 0.5 mg Cyclobenzaprine HCl (Flexeril) 10 mg PO TID PRN PRN Reason: Spasms Last Admin: 09/16/18 18:10 Dose: 10 mg Docusate Sodium (Colace) 100 mg PO BID [facility] Last Admin: 09/16/18 21:26 Dose: 100 mg Admin: 09/16/18 08:55 Dose: 100 mg Admin: 09/15/18 20:28 Dose: 100 mg Famotidine (Pepcid) 20 mg PO Q12H [facility] Last Admin: 09/17/18 06:30 Dose: 20 mg Admin: 09/16/18 18:10 Dose: 20 mg Admin: 09/16/18 06:41 Dose: 20 mg Admin: 09/15/18 17:45 Dose: 20 mg Admin: 09/15/18 11:46 Dose: Levothyroxine Sodium (Synthroid) 88 mcg PO DAILY@0700 [facility] Last Admin: 09/17/18 06:30 Dose: 88 mcg Admin: 09/16/18 06:41 Dose: 88 mcg Lorazepam (Ativan) 0.5 mg PO Q4H PRN PRN Reason: Anxiety Last Admin: 09/16/18 06:41 Dose: 0.5 mg Magnesium Hydroxide (Milk Of Magnesia) 30 ml PO BID PRN PRN Reason: Constipation Morphine Sulfate (Morphine) 2 mg IVPUSH Q2H PRN PRN Reason: Breakthrough Pain Last Admin: 09/16/18 17:09 Dose: 2 mg Multivitamins (Thera) 1 each PO DAILY [facility] Last Admin: 09/16/18 08:55 Dose: 1 each Naloxone HCl (Narcan) 0.1 mg IVPUSH Q5M PRN PRN Reason: Oversedation Ondansetron HCl (Zofran) 4 mg IVPUSH Q4H PRN PRN Reason: Nausea Last Admin: 09/16/18 05:45 Dose: 4 mg Admin: 09/15/18 23:23 Dose: 4 mg Oxycodone HCl (Oxycodone) 5 mg PO Q4H PRN PRN Reason: Pain Last Admin: 09/16/18 22:15 Dose: 5 mg Admin: 09/16/18 15:57 Dose: 5 mg Admin: 09/16/18 11:42 Dose: 5 mg Oxycodone/Acetaminophen (Percocet 325-5 Mg) 1 - 2 tab PO Q4H PRN PRN Reason: Pain Last Admin: 09/17/18 05:07 Dose: 2 tab Admin: 09/17/18 00:08 Dose: 1 tab Admin: 09/15/18 17:42 Dose: 2 tab Fluvoxamine Maleate (Er 100 Mg Ptom) 0 each PO BEDTIME [facility] Last Admin: 09/16/18 21:25 Dose: 1 each Admin: 09/15/18 20:28 Dose: 1 each Polysaccharide Iron Complex (Ferrex 150) 150 mg PO DAILY [facility] Potassium Chloride (Klor-Con M20) 40 meq PO Q4H [facility] Stop: 09/17/18 13:01 Senna (Senna) 8.6 mg PO BID PRN PRN Reason: Constipation - Assessment Assessment (Free Text/Narrative):: POD#2 - right TKA - Plan Plan (Free Text/Narrative):: 1. Discharge to home today. The pt remained in Hospital overnight for continued monitoring and therapies and for pain control. 2. 325mg PO BID, frequent mobility. 3. Hgb 8.8 today. 4. Outpatient therapy. The pt was evaluated by Dr. Alston today.
[2018-09-17] MEDS: Docusate Sodium 100 MG Cap PO SCH (09:45)
[2018-09-17] MEDS: Aspirin 325 MG Tab.EC PO SCH (09:45)
[2018-09-17] MEDS: Multivitamins,Therapeutic Tab PO SCH (09:45)
[2018-09-17] MEDS: Potassium Chloride 20 MEQ Tab.ER PO SCH ×2 (09:46→12:15)
--- NOTE | 2018-09-17 09:46 | PCM.DCSUM1 ---
Discharge Summary - Hospital Course Brief History: Sherley is a 57 yo female who underwent right TKA with Dr. Alston on 09-15-2018. The procedure was completed under spinal anesthesia with MAC. The pt tolerated the procedure well and was admitted to the Medical-Surgical Unit. The pt received Ancef simin-operatively. She participated in P.T. and O.T. She was allowed to WBAT and used a FWW for mobility. The pt's surgical wound was dressed with a Mepilex dressing and remained clean and dry. On POD#1 , the pt was started on 325mg ASA BID for VTE prophylaxis. The pt used TEDs and SCDs also. On POD#1, the pt's hemoglobin was 10.9 and on POD#2 was 8.8. Medical management was provided by the Hospitalist service and the pt's hospital course was remarkable for difficulty obtaining adequate pain control initially. On POD#2, the pt was deemed appropriate for discharge to home with her . Diagnosis: Stroke: No - Discharge Data Discharge Date: 09/17/18 Discharge Disposition: Home, Self-Care 01 Condition: Good - Patient Summary/Data Consults: Consultations 09/15/ 06:36 OT Evaluation and Treatment [CONS] Routine PT Evaluation and Treatment [CONS] Routine 09/15/18 06:37 Consult to Physician [CONS] Routine - Patient Instructions Diet: Usual Diet as Tolerated Activity: Apply Ice, As Tolerated, Elevate Extremity, Full Weight Bearing Driving: Do Not Drive Showering/Bathing: May Shower Wound/Incision Care: Keep Operative Site/Wound Site Clean and Dry, Do NOT Change Dressing Notify Provider of: Fever, Increased Pain, Swelling and Redness, Drainage, Nausea and/or Vomiting Other/Special Instructions: Please get up and moving around EVERY HOUR while awake. This helps to prevent blood clots. Please use your walker and have help with mobility as needed. Take a short walk in your home every hour while awake. Please take 325mg Aspirin TWICE daily. The aspirin is being used for blood clot prevention and not for pain management so please do not miss a dose of the medication. You could use a medication like Zantac or Pepcid and a medication like Prilosec or Nexium to protect your stomach while you are using the aspirin. At home, please complete the exercises that you learned during the Hospital stay. Schedule for physical therapy. Use the pain medication as needed. The medication may cause drowsiness and constipation. Contact your primary care provider for instructions if you are constipated. You may use a stool softener like docusate sodium or Colace 100mg twice daily and/or a laxative like Miralax daily for constipation. Increase your water and fiber intake while you are using the pain medication. Discontinue use of the pain medication as soon as able. Please do not use other medications that may cause drowsiness (other pain medications, anxiety pills, cold medications, sleeping pills, etc) while using the prescription pain medication. Do not use alcohol while using the pain medication. You could use acetaminophen (Tylenol) for pain , however, please ensure you are not using over 4000mg or 4 grams of acetaminophen per day from all sources. You pain pill has 325mg per tablet. Please do not use ibuprofen (Advil, Motrin) or naproxen (Aleve) at this time, as you are on 325mg aspirin twice daily. Once the aspirin is discontinued ( between 4 and 6 weeks post-operatively), you may use ibuprofen or naproxen. Wear the TOYA hose during the day and you may remove these at night. Elevate the limb to decrease swelling. Place ice to the area often. Place a towel between your skin and the blue pad. Use the incentive spirometer often. Take deep breaths throughout the day. Please keep the dressing in place until follow -up. Notify the Clinic if the dressing becomes saturated. Increase your protein intake while you are healing. Your primary care provider has indicated you should HOLD use of estradiol for 6 weeks after surgery. You may restart use of Vitamin C in 2 weeks. Call the Clinic with questions or concerns - [phone]. Follow-up with your primary care provider on 09/19/18 for repeat lab draw. Recommend re-check CBC, BMP, and magnesium. - Discharge Plan *PRESCRIPTION DRUG MONITORING PROGRAM REVIEWED*: No *COPY OF PRESCRIPTION DRUG MONITORING REPORT IN PATIENT KEVIN: No Prescriptions/Med Rec: Ondansetron HCl [Zofran] 4 mg PO Q6HR PRN #20 tablet PRN Reason: Nausea and vomiting Acetaminophen/oxyCODONE [Percocet 325-5 MG] 1 - 2 tab PO Q4H PRN #60 tablet PRN Reason: Pain Aspirin [Ecotrin] 325 mg PO BID #84 tab.ec Cyclobenzaprine [Flexeril] 10 mg PO BID PRN #30 tablet PRN Reason: Spasms Iron Polysaccharide Complex [Ferric X-150] 150 mg PO DAILY #20 capsule Home Medications: Home Meds Cholecalciferol (Vitamin D3) [Vitamin D3] 5,000 unit PO DAILY 03/26/18 [History] ClonazePAM [KlonoPIN] 0.5 mg PO BEDTIME 03/26/18 [History] Levothyroxine [Synthroid] 88 mcg PO DAILY 03/26/18 [History] Multivitamin [Poly-Vitamin] 1 tab PO DAILY 03/26/18 [History] fluvoxaMINE Maleate [Fluvoxamine Maleate ER] 100 mg PO BEDTIME 03/26/18 [History ] Acetaminophen/oxyCODONE [Percocet 325-5 MG] 1 - 2 tab PO Q4H PRN #60 tablet [Rx] Aspirin [Ecotrin] 325 mg PO BID #84 tab.ec 09/15/18 [Rx] Bisacodyl [Dulcolax] 5 mg PO DAILY PRN tablet 09/15/18 [Rx] Cyclobenzaprine [Flexeril] 10 mg PO BID PRN #30 tablet 09/15/18 [Rx] Docusate Sodium [Colace] 100 mg PO BID cap 09/15/18 [Rx] Famotidine [Pepcid] 20 mg PO Q12H tablet 09/15/18 [Rx] Magnesium Hydroxide [Milk of Magnesia] 30 ml PO BID PRN cup 09/15/18 [Rx] Sennosides [Senna] 8.6 mg PO BID PRN tablet 09/15/18 [Rx] Iron Polysaccharide Complex [Ferric X-150] 150 mg PO DAILY #20 capsule 09/17/18 [Rx] Ondansetron HCl [Zofran] 4 mg PO Q6HR PRN #20 tablet 09/17/18 [Rx] Oxygen Therapy Mode: Room Air Referrals: Muriel Brown PA-C [Physician [employer]] - - Discharge Summary/Plan Comment DC Time >30 min.: No - Patient Data Vitals - Most Recent: Last Vital Signs Temp 97.5 F 09/17/18 09:34 Pulse 67 09/17/18 09:34 Resp 14 09/17/18 09:34 BP 96/67 09/17/18 09:34 Pulse Ox 94 L 09/17/18 09:34 Weight - Most Recent: 142 lb 3.2 oz I&O - Last 24 hours: Intake & Output 09/16/18 09/17/18 09/17/18 22:59 06:59 14:59 Intake Total 1540 2374 Output Total 1200 1400 Balance 340 974 Lab Results - Last 24 hrs: Laboratory Results - last 24 hr 09/16/18 09/17/18 09/17/18 Range/Units 12:28 05:55 05:55 WBC 15.86 H (3.98-10.04) K/mm3 RBC 3.00 L (3.98-5.22) M/mm3 Hgb 8.8 L (11.2-15.7) gm/L Hct 27.6 L (34.1-44.9) % MCV 92.0 (79.4-94.8) fl MCH 29.3 (25.6-32.2) pg MCHC 31.9 L (32.2-35.5) g/dl RDW Std Deviation 47.4 H (36.4-46.3) fL Plt Count 251 (182-369) K/mm3 MPV 10.6 (9.4-12.3) fl Neut % (Auto) 63.2 (34.0-71.1) % Lymph % (Auto) 20.3 (19.3-51.7) % [place] % (Auto) 16.0 H (4.7-12.5) % Eos % (Auto) 0.1 L (0.7-5.8) Baso % (Auto) 0.1 (0.1-1.2) % Neut # (Auto) 10.02 H (1.56-6.13) K/mm3 Lymph # (Auto) 3.22 (1.18-3.74) K/mm3 [place]anner # (Auto) 2.53 H (0.24-0.36) K/mm3 Eos # (Auto) 0.02 L (0.04-0.36) K/mm3 Baso # (Auto) 0.02 (0.01-0.08) K/mm3 Manual Slide Review Abnormal smear Sodium 139 (136-145) mEq/L Potassium 3.4 L (3.5-5.1) mEq/L Chloride 105 (98-107) mEq/L Carbon Dioxide 28 (21-32) mEq/L Anion Gap 9.4 (5-15) BUN 8 (7-18) mg/dL Creatinine 0.7 (0.55-1.02) mg/dL Est Cr Clr Drug Dosing 70.98 mL/min Estimated GFR (MDRD) > 60 (>60) mL/min BUN/Creatinine Ratio 11.4 L (14-18) Glucose 105 (74-106) mg/dL Calcium 8.2 L (8.5-10.1) mg/dL Magnesium 1.7 L (1.8-2.4) mg/dl Urine Color Yellow (Yellow) Urine Appearance Clear (Clear) Urine pH 6.0 (5.0-8.0) Ur Specific [place] 1.020 (1.005-1.030) Urine Protein Trace H (Negative) Urine Glucose (UA) Negative (Negative) Urine Ketones Negative (Negative) Urine Occult Blood Negative (Negative) Urine Nitrite Negative (Negative) Urine Bilirubin Negative (Negative) Urine Urobilinogen 0.2 (0.2-1.0) Ur Leukocyte Esterase Negative (Negative) Urine RBC 0-5 (0-5) /hpf Urine WBC 0-5 (0-5) /hpf Ur Epithelial Cells 0-5 (0-5) /hpf Ur Renal Epithelial Cell 0-5 (0-5) /hpf Urine Bacteria Rare (FEW) /hpf Urine Mucus Few (FEW) /hpf Med Orders - Current: Current Medications Aspirin (Ecotrin) 325 mg PO BID [facility] Last Admin: 09/16/18 21:26 Dose: 325 mg Bisacodyl (Dulcolax) 5 mg PO DAILY PRN PRN Reason: Constipation Cholecalciferol (Vitamin D3) 5,000 unit PO DAILY [facility] Last Admin: 09/16/18 08:55 Dose: 5,000 unit Clonazepam (Klonopin) 0.5 mg PO BEDTIME [facility] Last Admin: 09/16/18 21:25 Dose: 0.5 mg Cyclobenzaprine HCl (Flexeril) 10 mg PO TID PRN PRN Reason: Spasms Last Admin: 09/16/18 18:10 Dose: 10 mg Docusate Sodium (Colace) 100 mg PO BID [facility] Last Admin: 09/16/18 21:26 Dose: 100 mg Famotidine (Pepcid) 20 mg PO Q12H [facility] Last Admin: 09/17/18 06:30 Dose: 20 mg Levothyroxine Sodium (Synthroid) 88 mcg PO DAILY@0700 [facility] Last Admin: 09/17/18 06:30 Dose: 88 mcg Lorazepam (Ativan) 0.5 mg PO Q4H PRN PRN Reason: Anxiety Last Admin: 09/16/18 06:41 Dose: 0.5 mg Magnesium Hydroxide (Milk Of Magnesia) 30 ml PO BID PRN PRN Reason: Constipation Morphine Sulfate (Morphine) 2 mg IVPUSH Q2H PRN PRN Reason: Breakthrough Pain Last Admin: 09/16/18 17:09 Dose: 2 mg Multivitamins (Thera) 1 each PO DAILY [facility] Last Admin: 09/16/18 08:55 Dose: 1 each Naloxone HCl (Narcan) 0.1 mg IVPUSH Q5M PRN PRN Reason: Oversedation Ondansetron HCl (Zofran) 4 mg IVPUSH Q4H PRN PRN Reason: Nausea Last Admin: 09/16/18 05:45 Dose: 4 mg Oxycodone HCl (Oxycodone) 5 mg PO Q4H PRN PRN Reason: Pain Last Admin: 09/16/18 22:15 Dose: 5 mg Oxycodone/Acetaminophen (Percocet 325-5 Mg) 1 - 2 tab PO Q4H PRN PRN Reason: Pain Last Admin: 09/17/18 05:07 Dose: 2 tab Fluvoxamine Maleate (Er 100 Mg Ptom) 0 each PO BEDTIME [facility] Last Admin: 09/16/18 21:25 Dose: 1 each Polysaccharide Iron Complex (Ferrex 150) 150 mg PO DAILY [facility] Potassium Chloride (Klor-Con M20) 40 meq PO Q4H [facility] Stop: 09/17/18 13:01 Senna (Senna) 8.6 mg PO BID PRN PRN Reason: Constipation Discontinued Medications Acetaminophen (Tylenol) 975 mg PO ONETIME [facility] Stop: 09/15/18 13:00 Last Admin: 09/15/18 06:39 Dose: 975 mg Bupivacaine HCl (Marcaine 0.25%) Confirm Administered Dose 30 ml .ROUTE .STK- MED ONE Stop: 09/15/18 06:17 Last Admin: 09/15/18 08:14 Dose: 30 ml Cefazolin Sodium (Ancef) Confirm Administered Dose 2 gm .ROUTE .STK-MED ONE Stop: 09/15/18 06:16 Last Admin: 09/15/18 08:08 Dose: 2 gm Cefazolin Sodium (Ancef) Confirm Administered Dose 2 gm .ROUTE .STK-MED ONE Stop: 09/15/18 07:00 Morphine Sulfate 8 mg/Epinephrine HCl 0.3 mg/Cefuroxime Sodium 750 mg/Ketorolac Tromethamine 30 mg/Sodium Chloride 27.9 ml 0 mg .XX ONETIME ONE Stop: 09/15/18 07:31 Last Admin: 09/15/18 11:46 Dose: Not Given Dexamethasone (Dexamethasone) Confirm Administered Dose 20 mg .ROUTE .[facility] ONE Stop: 09/15/18 07:37 Diphenhydramine HCl (Benadryl) 25 mg IVPUSH Q6H PRN PRN Reason: Pruritis Stop: 09/15/18 16:00 Ephedrine Sulfate (Ephedrine In Ns) Confirm Administered Dose 25 mg .ROUTE .ST- MED ONE Stop: 09/15/18 06:59 Ephedrine Sulfate (Ephedrine Sulfate) 5 mg IVPUSH ASDIRECTED PRN PRN Reason: Hypotension Stop: 09/15/18 12:00 Epinephrine HCl (Adrenalin) Confirm Administered Dose 1 mg .ROUTE .ST-MED ONE Stop: 09/15/18 09:14 Fentanyl (Sublimaze) 50 mcg IVPUSH Q5M PRN PRN Reason: Pain Stop: 09/15/18 12:00 Lactated Ringer's (Ringers, Lactated) 1,000 mls @ 125 mls/hr IV ASDIRECTED [facility] Stop: 09/15/18 23:00 Last Admin: 09/15/18 06:25 Dose: 125 mls/hr Cefazolin Sodium/Dextrose 2 gm (/ Premix) 50 mls @ 100 mls/hr IV Q8H [facility] Stop: 09/15/18 23:14 Last Admin: 09/15/18 19:51 Dose: Not Given Lidocaine HCl (Xylocaine-Mpf 1%) Confirm Administered Dose 4 mls @ as directed .ROUTE .STK-MED ONE Stop: 09/15/18 06:58 Lidocaine HCl (Xylocaine-Mpf 1%) Confirm Administered Dose 2 mls @ as directed .ROUTE .[facility]-MED ONE Stop: 09/15/18 07:58 Lactated Ringer's (Ringers, Lactated) Confirm Administered Dose 1,000 mls @ as directed .ROUTE .[facility]-MED ONE Stop: 09/15/18 08:31 Lactated Ringer's (Ringers, Lactated) Confirm Administered Dose 1,000 mls @ as directed .ROUTE .[facility]-MED ONE Stop: 09/15/18 08:45 Sodium Chloride (Normal Saline) 1,000 mls @ 999 mls/hr IV ASDIRECTED [facility] Last Admin: 09/15/18 14:03 Dose: 999 mls/hr Sodium Chloride (Normal Saline) Confirm Administered Dose 1,000 mls @ as directed .ROUTE .[facility] ONE Stop: 09/15/18 13:59 Last Admin: 09/15/18 14:34 Dose: Not Given Cefazolin Sodium/Dextrose 2 gm (/ Premix) 50 mls @ 100 mls/hr IV Q8H [facility] Stop: 09/16/18 07:29 Last Admin: 09/16/18 07:25 Dose: 100 mls/hr Sodium Chloride (Normal Saline) 500 mls @ 500 mls/hr IV .BOLUS ONE Stop: 09/16/18 06:59 Last Admin: 09/16/18 06:09 Dose: 500 mls/hr Sodium Chloride (Normal Saline) 1,000 mls @ 100 mls/hr IV ASDIRECTED [facility] Last Admin: 09/16/18 23:46 Dose: 100 mls/hr Iodine (Iodine 2% Mild Tincture) Confirm Administered Dose 30 ml .ROUTE .[facility]- MED ONE Stop: 09/15/18 06:17 Last Admin: 09/15/18 08:05 Dose: 18 ml Ketamine HCl (Ketalar) Confirm Administered Dose 500 mg .ROUTE .[facility] ONE Stop: 09/15/18 06:58 Ketorolac Tromethamine (Toradol) 15 mg IVPUSH Q6H PRN PRN Reason: Pain Last Admin: 09/16/18 16:52 Dose: 15 mg Ketorolac Tromethamine (Toradol) Confirm Administered Dose 30 mg .ROUTE .K- MED ONE Stop: 09/15/18 08:30 Lidocaine/Sodium Bicarbonate (Buffered Lidocaine 1% In Ns 8.4%) 0.25 ml IDERM ONETIME PRN PRN Reason: Prior to IV Start Stop: 09/15/18 18:00 Last Admin: 09/15/18 06:25 Dose: 0.25 ml Magnesium Oxide (Magnesium Oxide) 800 mg PO ONETIME ONE Stop: 09/17/18 09:00 Midazolam HCl (Versed 1 Mg/Ml) Confirm Administered Dose 2 mg .ROUTE .STK-MED ONE Stop: 09/15/18 06:58 Midazolam HCl (Versed 1 Mg/Ml) Confirm Administered Dose 2 mg .ROUTE .STK-MED ONE Stop: 09/15/18 07:08 Ondansetron HCl (Zofran) 4 mg IVPUSH Q6H PRN PRN Reason: Nausea/Vomiting Last Admin: 09/15/18 19:20 Dose: 4 mg Ondansetron HCl (Zofran) Confirm Administered Dose 4 mg .ROUTE .STK-MED ONE Stop: 09/15/18 06:58 Ondansetron HCl (Zofran) 4 mg IVPUSH ONETIME PRN PRN Reason: Nausea/Vomiting Stop: 09/15/18 12:00 Oxycodone HCl (Oxycontin) 10 mg PO ONETIME [facility] Stop: 09/15/18 13:00 Last Admin: 09/15/18 06:40 Dose: 10 mg Phenylephrine HCl (Phenylephrine In Ns 100 Mcg/Ml) Confirm Administered Dose 1 mg .ROUTE .STK-MED ONE Stop: 09/15/18 08:37 Pregabalin (Lyrica) 50 mg PO ONETIME [facility] Stop: 09/15/18 13:00 Last Admin: 09/15/18 06:39 Dose: 50 mg Prochlorperazine Edisylate (Compazine) 5 mg IVPUSH ONETIME ONE Stop: 09/16/18 07:50 Last Admin: 09/16/18 07:58 Dose: 5 mg Propofol (Diprivan 20 Ml) Confirm Administered Dose 600 mg .ROUTE .STK-MED ONE Stop: 09/15/18 06:57 Ropivacaine (Naropin 0.5%) Confirm Administered Dose 30 ml .ROUTE .STK-MED ONE Stop: 09/15/18 09:15 Scopolamine (Transderm-Scop) 1.5 mg TOP ONETIME [facility] Stop: 09/15/18 13:00 Last Admin: 09/15/18 06:19 Dose: 1.5 mg Sodium Chloride (Saline Flush) 10 ml FLUSH ASDIRECTED PRN PRN Reason: Keep Vein Open Stop: 09/15/18 23:00 Tranexamic Acid (Cyklokapron) Confirm Administered Dose 1,000 mg .ROUTE .STK- MED ONE Stop: 09/15/18 06:16 Last Admin: 09/15/18 08:24 Dose: 1,000 mg Vancomycin HCl (Vancomycin) Confirm Administered Dose 1 gm .ROUTE .STK-MED ONE Stop: 09/15/18 06:16 Last Admin: 09/15/18 08:16 Dose: 1 gm
--- NOTE | 2018-09-18 11:23 | PCM.OPNOTE ---
- General Post-Op/Procedure Note Date of Surgery/Procedure: 09/15/18 Operative Procedure(s): right total knee arthroplasty Pre Op Diagnosis: right knee osteoarthrosis Post-Op Diagnosis: Same Anesthesia Technique: Local, MAC, Spinal Primary Surgeon: Jaylan Alston Anesthesia Provider: Alley Braun Complaint Inspector: Muriel Brown Complaint Inspector: Christine Rae EBFátima in mLs: 750 Complications: None Condition: Good Free Text/Narrative:: size 4/4 9mm 29x9
--- NOTE | 2018-09-18 12:29 | OR ---
DATE OF OPERATION: 09/15/2018 SURGEON: Jaylan Alston MD OPERATION PERFORMED: Right total knee arthroplasty. PREOPERATIVE DIAGNOSIS: Right knee osteoarthrosis. POSTOPERATIVE DIAGNOSIS: Right knee osteoarthrosis. ANESTHESIA: Local MAC with spinal. ANESTHESIA PROVIDER: Sabina Coburn. ASSISTANTS: 1. Muriel Brown PA-C. 2. Christine Rae LPN. ESTIMATED BLOOD LOSS: 750 mL. COMPLICATIONS: None. CONDITION: Stable. IMPLANTS: 1. [place] size 4 press-fit CR femur. 2. [place] size 4 press-fit tibial base plate. 3. [place] size-4 9-mm CS polyethylene insert. 4. [place] size 29 x 9 mm asymmetric patella. DESCRIPTION OF PROCEDURE: The patient was identified in the preop holding area. Proper site was marked and identified by the surgeon. The patient was taken back to the operating theater. After adequate anesthesia, the patient's right lower extremity had a nonsterile tourniquet applied and it was sterilely prepped and draped in the usual sterile fashion. OR time-out was performed. The patient received 2 g IV Ancef. At this time, the right lower extremity was exsanguinated. Tourniquet was insufflated to 300 mmHg. Standard medial parapatellar incision was made. Medial parapatellar arthrotomy was created. Deep fibers of the MCL were raised and anterior fat pad was resected. At this time, attention was turned to the patella. Patella measured 22, it was resected to a 13 for a 29 x 9 mm patella. Drill holes were then drilled and found to be in adequate position. The drill was then drilled in the distal femur and the intramedullary distal femoral cutting guide was then placed. 8 mm was resected off the distal femur and was found to be an adequate resection. Sizing guide was placed. It was found to be a size 4 press-fit CR femur that was shown on the implant record at the beginning of this dictation. The drill holes were drilled for the epicondylar axis using [place] line and epicondyles as reference. At this time, the 4-in - 1 cutting block was placed. An anterior posterior and anterior and posterior chamfer cuts were then completed. Attention was turned to the tibia. The posterior medial lateral retractors were placed. The extramedullary tibial guide was placed. It was placed in the old footprint of the ACL. It was aligned with the center of the ankle and 0 degrees of slope, 9 mm was then resected off the unaffected side. There was found to be an acceptable reduction. At this time, posterior osteophytes were removed along with medial and lateral meniscus. A trial implant was placed with a correct sized tibia that was mentioned at the beginning of the dictation. A [place] size-4 9-mm CS polyethylene insert was then placed. The patient's knee was brought through range of motion. The patella was tracking centrally and was stable to varus and valgus stress. Alignment was found to be roughly at 0 degrees. The tibia was stamped and drilled in proper rotation. The universal tibial base plate was impacted in place. Next, the [place] size 4 press-fit CR femur impacted into place and the [place] size-4 9-mm CS polyethylene insert was placed. The patient's knee was brought into full extension. The patella was then press-fit in place at this time. Tourniquet was deflated. One liter dilute Betadine solution was irrigated through the knee along with 3 L of pulse lavage irrigation with Ancef. Periarticular injection was then completed. The patient's knee was brought through a range of motion. Knee was found to be stable to varus valgus stress, the patella was tracking centrally with full range of motion. At this time, a #2 barbed suture was used for closure of the medial parapatellar arthrotomy. Topical tranexamic acid was placed. 2-0 Vicryl was used subcutaneously, Prineo was used for the skin. The patient tolerated the procedure well and was sent to the PACU in stable condition. KO /[id number] DIANNE
== END 2018-09-17 13:12 | disposition home or self-care (01) | DRG 302 ==
LOC: JD.SDS 06:03 → JD.MS 06:04
PROVIDERS: ADMIT Orthopaedic Surgery; ATTEND Orthopaedic Surgery
PROC: 0SRC0JA Replacement of Right Knee Joint with Synthetic Substitute, Uncemented, Open Approach (ICD-10-PCS; principal; 2018-09-15)
PROC: 3E0T3BZ Introduction of Anesthetic Agent into Peripheral Nerves and Plexi, Percutaneous Approach (ICD-10-PCS; 2018-09-15)
DX: M17.11 Unilateral primary osteoarthritis, right knee (principal); I95.9 Hypotension, unspecified; E83.42 Hypomagnesemia; E87.6 Hypokalemia; R11.2 Nausea with vomiting, unspecified; G89.18 Other acute postprocedural pain; M25.761 Osteophyte, right knee; F32.9 Major depressive disorder, single episode, unspecified; F41.9 Anxiety disorder, unspecified; E03.9 Hypothyroidism, unspecified; M50.10 Cervical disc disorder with radiculopathy, unspecified cervical region; R73.01 Impaired fasting glucose; E55.9 Vitamin D deficiency, unspecified; G43.909 Migraine, unspecified, not intractable, without status migrainosus; H54.7 Unspecified visual loss; Z90.710 Acquired absence of both cervix and uterus; Z78.0 Asymptomatic menopausal state; Z88.1 Allergy status to other antibiotic agents; Z79.899 Other long term (current) drug therapy; Z79.890 Hormone replacement therapy; Z90.81 Acquired absence of spleen; Z79.82 Long term (current) use of aspirin
CPT/HCPCS: 01402; 36415; 64450; 71046; 71046-26; 73560-26-RT; 73560-RT; 80048; 80053; 81001; 83735; 85014; 85018; 85025; 85027; 87641; 94760; 97110-GP; 97116-GP; 97161-GP; 97165-GO; 97535-GO; A9270-GY; C1776; J0171; J0690; J0780; J1100; J1885; J2001; J2250; J2270; J2370; J2405; J2704; J2795; J3370; J3490; J7040; J7050; J7120